=== PATIENT | male | born 1935 | race Caucasian/White ===

== ENCOUNTER 2018-01-24 08:35 | Inpatient (IN) | payer MEDICARE, MEDICAID ==
[~2018-01-24] VITALS: Ht 172.7 cm; Wt 75.7 kg
[2018-01-24] VITALS (42 sets, daily range): BP systolic 73–149; BP diastolic 34–100
[2018-01-24] MEDS ORDERED: IV NORMAL SALINE 500 ML BAG IV ONE ×2 (08:45→10:15)
[2018-01-24] MEDS ORDERED: ATOR40TA PO (08:58)
[2018-01-24] MEDS ORDERED: BUPR100T5 PO (08:58)
[2018-01-24] MEDS ORDERED: MECL-118 PO (08:58)
[2018-01-24] MEDS ORDERED: MELA5TAB PO (08:58)
[2018-01-24] MEDS ORDERED: ASPI-612 PO (08:58)
[2018-01-24] MEDS ORDERED: DICL1ADH11 TP (08:58)
[2018-01-24] MEDS ORDERED: CLON1TAB4 PO (08:58)
[2018-01-24] MEDS ORDERED: ACET-2605 PO (08:58)
[2018-01-24] MEDS ORDERED: VITA1TAB20 PO (08:58)
--- NOTE | 2018-01-24 09:11 | NUR ---
Assisted patient to a gown & partial skin care provided. Comfort and safety measures maintained.
[2018-01-24] MEDS ORDERED: ACETAMINOPHEN ES 500 MG TABLET ONE (09:29)
[2018-01-24] MEDS ORDERED: ACETAMINOPHEN ES 500 MG TABLET PO ONE (09:30)
[2018-01-24 09:38] LABS: BASOPHILS % (AUTO) 0.1 % (0.0-2.0); HEMOGLOBIN 12.4 g/dL (12.5-16.3); LYMPHOCYTES # (AUTO) 0.4 K/uL (20.0-40.0); LYMPHOCYTES % (AUTO) 2.4 % (20.5-51.5); MEAN CORPUSCULAR HEMOGLOBIN 29.3 uug (23.8-33.4); MEAN CORPUSCULAR HGB CONC 33 g/dL (32.5-36.3); MEAN CORPUSCULAR VOLUME 87.6 fL (73.0-96.2); MONOCYTES # (AUTO) 0.3 K/uL (2.0-10.0); MONOCYTES % (AUTO) 1.7 % (0.0-11.0); NEUTROPHILS # (AUTO) 14.8 K/uL (1.8-8.9); NEUTROPHILS % (AUTO) 95.8 % (38.5-71.5); PLATELET COUNT (AUTO) 196 K/uL (152-348); RED BLOOD CELL COUNT(AUTO) 4.22 MIL/uL (4.06-5.63); WHITE BLOOD COUNT (AUTO) 15.4 K/uL (3.6-10.2)
[2018-01-24 09:40] LABS: CARBON DIOXIDE 21 mmol/L (21-32); CHLORIDE 104 mmol/L (98-107); CREATININE 2.6 mg/dL (0.6-1.3); GLUCOSE 86 mg/dL (74-106); POTASSIUM 4.4 mmol/L (3.5-5.1); UREA NITROGEN, BLOOD 43 mg/dL (7-18)
[2018-01-24 09:46] LABS: ALANINE AMINOTRANSFERASE 40 U/L (16-63); ALKALINE PHOSPHATASE 80 U/L (50-136); ASPARTATE AMINOTRANSFERASE 52 U/L (15-37); BILIRUBIN,DIRECT 0.3 mg/dL (0.0-0.2); BILIRUBIN,TOTAL 0.9 mg/dL (0.2-1.0); TOTAL PROTEIN, SERUM 6.1 g/dL (6.4-8.2)
[2018-01-24] MEDS ORDERED: LEVOFLOXACIN 750MG/D5W 150 ML IV ONE ×2 (10:15→10:16)
--- NOTE | 2018-01-24 10:58 | NUR ---
Patient left for CT scan then patient will go straight to room 206.
--- NOTE | 2018-01-24 11:20 | NUR ---
RECIEVED NEW PATIENT TO ROOM 206 FROM ER AFTER X RAY AWAKE ALERT COOPERATE WELL NO SOB OR PAIN CONTINUE O2 AT 2L O2 SAT WNL 96% BUT BP WAS LOW 76/50 PUT HIM ON TRENDELENBERG POSITION AND RECHECK AGAIN STILL LOW SEE VS FLOW SHEET MARKET ANALYST JENNA TERRY WAS INFORM ORDER NS 500ML BOLUS AND GIVEN ORDERED AND CLOSED OBSERVATION CALL LIGHT IN REACH
[2018-01-24] MEDS ORDERED: IV NS 1000 ML 1,000 ML IV PRN (11:45)
[2018-01-24] MEDS ORDERED: ACETAMINOPHEN 325 MG TABLET PO PRN (11:45)
[2018-01-24] MEDS ORDERED: IV NORMAL SALINE 500 ML IV ONE (11:45)
--- NOTE | 2018-01-24 12:00 | NUR ---
CONTINUE IVF ORDER LAB WAS CALL LACTIC ACID WAS 4.4 CONTINUOUS MINING MACHINE LODE MINER HARRISON WAS NOTIFY CONTINUE LAB LACTIC ACID PROTOCOL AND LAB WAS AWARE OF IT
[2018-01-24] MEDS ORDERED: MECLIZINE HCL 25 MG TABLET PO PRN (12:15)
--- NOTE | 2018-01-24 12:15 | NUR ---
CHECK BP STILL LOW OVEN ROASTER HARRISON WAS INFORM AND ORDER OK TO TRANSFER TO THE UNIT WITH ORDER
--- NOTE | 2018-01-24 12:25 | NUR ---
TO UNIT VIA BED RESTING QUIET NO ACUTE DISTRESS OR PAIN AT THIS TIME
--- NOTE | 2018-01-24 12:30 | NUR ---
PT GOT TRANSFERRED FROM TELEMETRY BECAUSE OF LOW BP IN THE 70'S. PT IS VERY AWAKE , ALERT. AND ORIENTED. IVF RUNNING ON THE LEFT FA PATENT AND INTACT.
--- NOTE | 2018-01-24 12:45 | NUR ---
REPORT GIVE TO RADHA
[2018-01-24 12:49] LABS: BAND % (MANUAL) 30 % (0-10); LYMPHOCYTES % (MANUAL) 3 % (20-40); MONOCYTES % (MANUAL) 2 % (2-10); NEUTROPHILS % (MANUAL) 65 % (42-75)
--- NOTE | 2018-01-24 13:54 | NUR ---
PHARMACY CLINICAL NOTES ( VANCOMYCIN DOSING) S: 82 yo male with diagnosis syncope, possible sepsis, and PNA (MD note not in yet) pt received levaquin 750 mg x 1 in ER and was ordered Rocephine and Zithromax on floor. now MD ordered Vancomycin empirically until ID consult is done and antibiotics are adjusted. O: BUN/SCR 43/2.6; WBC 15.4, TEMP 99.2, LACTIC ACID 4.4--> 3.2; DOSING WT 160 LBS A/P: Will give Vancomycin 1 gm ivpb x 1 dose and will dose by fall of the level if ID decide to continue. per calculation Vancomycin 1gm q36h would yeild peak of 35 and trough of 17 . Will order level approximately around 36 hrs and will dose accordingly.
[2018-01-24] MEDS ORDERED: VANCOMYCIN IV 1 G in PREMIXED 0 EACH IV ONE (14:00)
--- NOTE | 2018-01-24 14:00 | NUR ---
SEEN AND EXAMINED BY IDA SHRESTHA WITH NEW ADMITTING ORDER. DISCONTINUED THE MAIN IVF ORDERED. STRATED A NEW IV LINE ON THE LEFT HAND G20 FOR THE LEVOPHED DRIP SECONDARY TO LOW BP.
[2018-01-24] MEDS: CEFTRIAXONE 1 G in IV DEXTROSE 5% 50 ML IV SCH (14:42)
[2018-01-24] MEDS: AZITHROMYCIN IV 500 MG in IV DEXTROSE 5% 250 ML IV SCH (14:43)
--- NOTE | 2018-01-24 15:30 | NUR ---
2DECHO DONE AT THE BEDSIDE.
[2018-01-24] MEDS: NOREPINEPHRINE BITARTRATE 8 MG in IV DEXTROSE 5% 500 ML IV PRN (15:44)
[2018-01-24 16:12] LABS: ABG BASE EXCESS -6.4 mmol/L; ABG HCO3 16.6 mmol/L; ABG PCO2 26.5 mmHg (35.0-45.0); ABG PH 7.416 (7.350-7.450); ABG SITE RIGHT RADIAL; ABG TOTAL HEMOGLOBIN 12.7 G/dL (13.5-18.0); COHb 1.5 % (0.5-1.5); MetHb 0.3 % (0.0-1.5); VENT MODE Nasal Cannula
[2018-01-24] MEDS ORDERED: buPROPion SR 100 MG TABLET.SA PO SCH (17:00)
[2018-01-24] MEDS ORDERED: IV NS 1000 ML 1,000 ML IV ONE (17:15)
--- NOTE | 2018-01-24 17:30 | NUR ---
SEEN AND EXAMINED BY DR MEDINA WITH NEW ORDERS.
--- NOTE | 2018-01-24 18:20 | NUR ---
LACTIC ACID RESULT IS TRENDING DOWN TO 2.6. REPORT GIVEN TO OFFICE CLERK ASSISTANT RN
--- NOTE | 2018-01-24 18:30 | NUR ---
SEEN AND EXAMINED BY DR HAILEY HALL.
--- NOTE | 2018-01-24 18:50 | NUR ---
TIO ELLISON EXAMINED BY DR KIMO DHILLON [facility] ORDERS
[2018-01-24] MEDS ORDERED: ASPIRIN 325 MG TABLET PO ONE (19:15)
[2018-01-24] MEDS: IPRATROPIUM BROMIDE 0.5 MG/2.5 ML NEBU NEB SCH (19:29)
[2018-01-24] MEDS: ALBUTEROL SULFATE 2.5 MG/ 0.5 ML NEBU NEB SCH (19:30)
--- NOTE | 2018-01-24 19:30 | NUR ---
rounds made patient in bed ,awake ,alert and verbally responsive. patient denies pain when asked .tolerating 02 at 5 l min rr 25 saturation 97 % hob up . patient with breathing treatment and respiratory therapist at bedside will given patient breathing treatment .
[2018-01-24] MEDS: ATORVASTATIN 40 MG TABLET PO SCH (20:14)
[2018-01-24] MEDS ORDERED: MORPHINE SULFATE 2 MG/1 ML DISP.SYRIN IV PRN (20:15)
[2018-01-24 20:17] LABS: *BILIRUBIN,URIN NEGATIVE (NEGATIVE); *BLOOD, URINE 1+ (NEGATIVE); *CLARITY,URINE CLEAR (CLEAR); *COLOR,URINE DARK YELLOW (YELLOW); *KETONES,URINE NEGATIVE (NEGATIVE); *PROTEIN,URINE 1+ (NEGATIVE); *UROBILINOGEN,URINE 0.2 E.U./dl (NORMAL); LEUKOCYTE ESTERASE ,URINE NEGATIVE (NEGATIVE); NITRITE, URINE NEGATIVE (NEGATIVE); PH,URINE 5.5 (5.0-8.0); UGLUCOSE NEGATIVE (NEGATIVE)
[2018-01-24 20:20] LABS: *CREATININE,URINE 157.5 mg/dL (30-125); *URINE TOTAL PROTEIN RANDOM 47.2 mg/dL (<150/24HR)
[2018-01-24] MEDS: MELATONIN 3 MG TABLET PO SCH (20:46)
[2018-01-24] MEDS: MORPHINE SULFATE 4 MG/1 ML DISP.SYRIN IV PRN (20:49)
[2018-01-24] MEDS: IV NS 1000 ML 1,000 ML IV PRN ×2 (21:09→21:12)
[2018-01-24 21:18] LABS: MUCUS,URINE FEW /LPF (0-FEW); SQUAMOUS EPITHELIAL CELL,UR FEW /HPF (NONE SEEN); WBC,URINE 0-3 /HPF (0-3)
[2018-01-25] VITALS (87 sets, daily range): BP systolic 69–168; BP diastolic 40–97
[2018-01-25] MEDS: ALBUTEROL SULFATE 2.5 MG/ 0.5 ML NEBU NEB SCH ×4 (01:24→19:21)
[2018-01-25] MEDS: IPRATROPIUM BROMIDE 0.5 MG/2.5 ML NEBU NEB SCH ×4 (01:24→19:21)
[2018-01-25] MEDS: MORPHINE SULFATE 4 MG/1 ML DISP.SYRIN IV PRN (05:03)
--- NOTE | 2018-01-25 05:03 | NUR ---
morphine given prn for pain this time his pain is to his right lateral side .
--- NOTE | 2018-01-25 05:30 | NUR ---
am care done ,changed soiled linens and gown,patient able to help in turning .
[2018-01-25 05:39] LABS: BASOPHILS % (AUTO) 0.3 % (0.0-2.0); EOSINOPHILS % (AUTO) 0.1 % (0.0-7.0); HEMATOCRIT 35.8 % (36.7-47.1); HEMOGLOBIN 12.2 g/dL (12.5-16.3); LYMPHOCYTES # (AUTO) 0.7 K/uL (20.0-40.0); LYMPHOCYTES % (AUTO) 4.4 % (20.5-51.5); MEAN CORPUSCULAR HEMOGLOBIN 29.3 uug (23.8-33.4); MEAN CORPUSCULAR HGB CONC 34 g/dL (32.5-36.3); MONOCYTES # (AUTO) 0.2 K/uL (2.0-10.0); MONOCYTES % (AUTO) 1.4 % (0.0-11.0); NEUTROPHILS # (AUTO) 15.3 K/uL (1.8-8.9); NEUTROPHILS % (AUTO) 93.8 % (38.5-71.5); PLATELET COUNT (AUTO) 178 K/uL (152-348); RED BLOOD CELL COUNT(AUTO) 4.16 MIL/uL (4.06-5.63); WHITE BLOOD COUNT (AUTO) 16.2 K/uL (3.6-10.2)
[2018-01-25 05:57] LABS: ALANINE AMINOTRANSFERASE 28 U/L (16-63); ALKALINE PHOSPHATASE 65 U/L (50-136); ASPARTATE AMINOTRANSFERASE 26 U/L (15-37); BILIRUBIN,TOTAL 0.6 mg/dL (0.2-1.0); CARBON DIOXIDE 22 mmol/L (21-32); CHLORIDE 105 mmol/L (98-107); CHOLESTEROL 59 mg/dL (<200); CREATININE 2.2 mg/dL (0.6-1.3); GLUCOSE 86 mg/dL (74-106); HDL CHOLESTEROL 12 mg/dL (40-60); MAGNESIUM 1.3 mg/dL (1.8-2.4); PHOSPHOROUS 2.2 mg/dL (2.5-4.9); POTASSIUM 4.1 mmol/L (3.5-5.1); TOTAL PROTEIN, SERUM 5.6 g/dL (6.4-8.2); TRIGLYCERIDES 78 MG/DL (30-150); UREA NITROGEN, BLOOD 45 mg/dL (7-18)
[2018-01-25 06:10] LABS: THYROID STIMULATING HORMONE 1.659 mIU/mL (0.358-3.740)
[2018-01-25] MEDS: PANTOPRAZOLE SODIUM 40 MG TABLET.DR PO SCH (06:13)
[2018-01-25 06:15] LABS: CREATINE KINASE, TOTAL 157 U/L (39-308)
[2018-01-25] MEDS: IV NS 1000 ML 1,000 ML IV PRN (06:48)
--- NOTE | 2018-01-25 06:54 | NUR ---
seen and examined by jeanette Carreno md spoked to patient with regards to patient plan of care and treatment as per md he will continue to see patient as an out patient .
--- NOTE | 2018-01-25 08:50 | NUR ---
PT's sister and DPOA at bedside and as requested a call to attending for a complete update report.
[2018-01-25] MEDS: VITAMIN B COMPLEX 1 TABLET PO SCH (09:01)
[2018-01-25] MEDS: CYANOCOBALAMIN 1000 MCG/ML VIAL IM SCH (09:02)
[2018-01-25] MEDS: ASPIRIN 325 MG TABLET PO SCH (09:02)
[2018-01-25] MEDS: CEFTRIAXONE 1 G in IV DEXTROSE 5% 50 ML IV SCH (09:22)
[2018-01-25] MEDS ORDERED: NEUTRA PHOS PACKET PO ONE (10:30)
--- NOTE | 2018-01-25 11:21 | NUR ---
Attending N.P. in the unit to examine patient.
[2018-01-25] MEDS: MAGNESIUM SULFATE/D5W 100 ML IV SCH ×3 (11:22→13:30)
[2018-01-25] MEDS ORDERED: VANCOMYCIN IV 1 G in PREMIXED 0 EACH IV ONE (11:30)
--- NOTE | 2018-01-25 11:40 | NUR ---
PHARMACY CLINICAL NOTES ( VANCOMYCIN DOSING) S: 82 yo male with diagnosis syncope, possible sepsis, and PNA. Per ID, CAP severe to extent to cover for MRSA empirically. O: BUN/SCR 45/2.2; WBC 16.2, TEMP 98.2, DOSING WT 160 LBS Random" today with am labs 8.6 A/P: Gave another 1gm dose of vancomycin this am based on random today. Next random ordered with am labs tomorrow. Will follow level and redose as appropriate. Will monitor
[2018-01-25] MEDS: AZITHROMYCIN IV 500 MG in IV DEXTROSE 5% 250 ML IV SCH (14:57)
[2018-01-25] MEDS: NOREPINEPHRINE BITARTRATE 8 MG in IV DEXTROSE 5% 500 ML IV PRN (15:40)
--- NOTE | 2018-01-25 18:02 | NUR ---
Dr. Wang urology services in the unit to examine patient, full report given.
--- NOTE | 2018-01-25 20:00 | NUR ---
RECEIVED PT AWAKE, ALERT & ORIENTED X3, DENIES PAIN OR ANY DISCOMFORTS. ON O2 @ 4LNC W/ O2 SAT OF 98%. ON LEVOPHED DRIP @ 1MCQ/MIN ON L HAND. NS @ TKO RATE ON LFA., NO SIGNS OF INFILTRATION ON BOTH IV SITE. TEMP-99.2 ORALLY. COLD TOWEL APPLIED ON FOREHEAD & OFFERED COLD WATER TO DRINK. REPOSITIONED PT W/ HOB ELEVATED. NOT IN ANY DISTRESS.
[2018-01-25] MEDS: MELATONIN 3 MG TABLET PO SCH (20:39)
[2018-01-25] MEDS: ATORVASTATIN 40 MG TABLET PO SCH (20:40)
[2018-01-25] MEDS: LACTOBACILLUS RHAMNOSUS GG 1 EACH CAPSULE PO SCH (20:40)
[2018-01-26] VITALS (16 sets, daily range): BP systolic 94–139; BP diastolic 50–80
--- NOTE | 2018-01-26 | NUR ---
INSTRUCTED PT. TO BE NPO FOR CT SCAN OF PELVIS W/O CONTRAST IN AM. TEMP-98.3 ORALLY.
[2018-01-26] MEDS: ALBUTEROL SULFATE 2.5 MG/ 0.5 ML NEBU NEB SCH ×4 (00:30→19:11)
[2018-01-26] MEDS: IPRATROPIUM BROMIDE 0.5 MG/2.5 ML NEBU NEB SCH ×4 (00:30→19:11)
--- NOTE | 2018-01-26 01:00 | NUR ---
OFF LEVOPHED DRIP.
[2018-01-26] MEDS: MORPHINE SULFATE 4 MG/1 ML DISP.SYRIN IV PRN (02:05)
--- NOTE | 2018-01-26 04:30 | NUR ---
AM CARE DONE. ORAL CARE DONE BY HIMSELF. COUGHING OUT BLOOD TINGED MUCOUS THICK.
[2018-01-26] MEDS ORDERED: IV NORMAL SALINE 250 ML BAG IV ONE (04:45)
[2018-01-26] MEDS ORDERED: IV NORMAL SALINE 250 ML IV PRN (04:45)
[2018-01-26 05:07] LABS: BASOPHILS % (AUTO) 0.2 % (0.0-2.0); EOSINOPHILS # (AUTO) 0.1 K/uL (0.0-0.7); EOSINOPHILS % (AUTO) 0.7 % (0.0-7.0); HEMATOCRIT 32.8 % (36.7-47.1); LYMPHOCYTES # (AUTO) 0.7 K/uL (20.0-40.0); LYMPHOCYTES % (AUTO) 5.2 % (20.5-51.5); MEAN CORPUSCULAR HEMOGLOBIN 28.8 uug (23.8-33.4); MEAN CORPUSCULAR HGB CONC 34 g/dL (32.5-36.3); MEAN CORPUSCULAR VOLUME 85.3 fL (73.0-96.2); MONOCYTES # (AUTO) 0.5 K/uL (2.0-10.0); MONOCYTES % (AUTO) 3.4 % (0.0-11.0); NEUTROPHILS % (AUTO) 90.5 % (38.5-71.5); PLATELET COUNT (AUTO) 157 K/uL (152-348); RED BLOOD CELL COUNT(AUTO) 3.84 MIL/uL (4.06-5.63); WHITE BLOOD COUNT (AUTO) 14.4 K/uL (3.6-10.2)
[2018-01-26] MEDS: IPRATROPIUM BROMIDE 0.5 MG/2.5 ML NEBU NEB PRN (05:14)
[2018-01-26] MEDS: ALBUTEROL SULFATE 2.5 MG/ 0.5 ML NEBU NEB PRN (05:14)
--- NOTE | 2018-01-26 05:15 | NUR ---
HHN RESP TX GIVEN, PT. WAS ASLEEP AFTER. LEVOPHED DRIP REMAINS OFF BP STABLE.
[2018-01-26 05:22] LABS: ALANINE AMINOTRANSFERASE 26 U/L (16-63); ALKALINE PHOSPHATASE 76 U/L (50-136); ASPARTATE AMINOTRANSFERASE 25 U/L (15-37); BILIRUBIN,TOTAL 0.5 mg/dL (0.2-1.0); CARBON DIOXIDE 24 mmol/L (21-32); CHLORIDE 106 mmol/L (98-107); CREATININE 1.9 mg/dL (0.6-1.3); GLUCOSE 109 mg/dL (74-106); MAGNESIUM 2.2 mg/dL (1.8-2.4); PHOSPHOROUS 2.3 mg/dL (2.5-4.9); POTASSIUM 3.7 mmol/L (3.5-5.1); TOTAL PROTEIN, SERUM 5.4 g/dL (6.4-8.2); UREA NITROGEN, BLOOD 32 mg/dL (7-18); VANCOMYCIN,RANDOM 12.8 ug/mL (18.0-26.0)
[2018-01-26 05:55] LABS: BAND % (MANUAL) 6 % (0-10); LYMPHOCYTES % (MANUAL) 6 % (20-40); MONOCYTES % (MANUAL) 1 % (2-10); NEUTROPHILS % (MANUAL) 85 % (42-75); PROMYELOCYTES % 1 %
[2018-01-26] MEDS: PANTOPRAZOLE SODIUM 40 MG TABLET.DR PO SCH (06:43)
--- NOTE | 2018-01-26 07:07 | NUR ---
Report received.Pt remains awake,alert.Denies pain,discomfort.Respiration even,unlabored.Noted with productive cough.No SOB noted.Will continue to monitor.
[2018-01-26] MEDS: VITAMIN B COMPLEX 1 TABLET PO SCH (08:52)
[2018-01-26] MEDS: CYANOCOBALAMIN 1000 MCG/ML VIAL IM SCH (08:52)
[2018-01-26] MEDS: CEFTRIAXONE 1 G in IV DEXTROSE 5% 50 ML IV SCH (08:52)
[2018-01-26] MEDS: LACTOBACILLUS RHAMNOSUS GG 1 EACH CAPSULE PO SCH ×2 (08:53→21:20)
[2018-01-26] MEDS: ASPIRIN 325 MG TABLET PO SCH (08:59)
[2018-01-26] MEDS ORDERED: VANCOMYCIN IV 1 G in PREMIXED 0 EACH IV ONE (09:00)
[2018-01-26 09:07] LABS: A/G RATIO 0.9 (0.7-1.7); ALBUMIN 2.3 g/dL (2.9-4.4); ALPHA-1-GLOBULIN 0.4 g/dL (0.0-0.4); ALPHA-2-GLOBULIN 0.8 g/dL (0.4-1.0); BETA GLOBULIN 0.6 g/dL (0.7-1.3); GAMMA GLOBULIN 0.7 g/dL (0.4-1.8); GLOBULIN, TOTAL 2.5 g/dL (2.2-3.9); M-SPIKE Not Observed g/dL (Not Observed)
--- NOTE | 2018-01-26 10:00 | NUR ---
Pt was transferred to CT scan via bed connected to monitor.
[2018-01-26] MEDS ORDERED: NEUTRA PHOS PACKET PO ONE (10:15)
--- NOTE | 2018-01-26 11:21 | NUR ---
PHARMACY CLINICAL NOTES ( VANCOMYCIN DOSING) S: 82 yo male with diagnosis syncope, possible sepsis, and PNA. Per ID, CAP severe to extent to cover for MRSA empirically. O: BUN/SCR 32/1.9; WBC 14.4, TEMP 98.2, DOSING WT 160 LBS Random" today with am labs 12.8 A/P: Gave another 1gm dose of vancomycin this am at 0900 based on random today. Next random ordered with am labs tomorrow. Will follow level and re-dose as appropriate. Will monitor
[2018-01-26] MEDS ORDERED: CEFEPIME HCL 1 G in IV DEXTROSE 5% 50 ML IV SCH (13:00)
--- NOTE | 2018-01-26 13:09 | NUR ---
Pt was transferred to room 214.Report given to KAMILLA Nicole.
--- NOTE | 2018-01-26 13:10 | NUR ---
patient transferred from [facility] into telemetry at this time in stable condition, no s/s of distress. vital signs stable. received transfer report from KAMILLA estrada.
[2018-01-26] MEDS: AZITHROMYCIN IV 500 MG in IV DEXTROSE 5% 250 ML IV SCH (14:55)
--- NOTE | 2018-01-26 17:57 | NUR ---
antibiotics administered. afebrile. vitals wnl. awaiting sputum for pending sputum culture. stable condition. no s/s of distress. call light within reach.
[2018-01-26] MEDS: MELATONIN 3 MG TABLET PO SCH (21:20)
[2018-01-26] MEDS: ATORVASTATIN 40 MG TABLET PO SCH (21:20)
--- NOTE | 2018-01-26 21:36 | NUR ---
RECEIVED PT AWAKE, ALERT, ORIENTEDX3.PT SHOWS NO SIGNS OF DISTRESS. PT ON 4L NASAL CANULA. IV INTACT AND PATENT. ARECHIGA CATHETER DWELLING WELL. CALL LIGHT WITHIN REACH, BED ALARM ON AND IN LOW POSITION, SIDE RAILS X2 UP. WILL CONTINUE TO MONITOR.
[2018-01-27] MEDS: IPRATROPIUM BROMIDE 0.5 MG/2.5 ML NEBU NEB SCH ×4 (00:31→19:10)
[2018-01-27] MEDS: ALBUTEROL SULFATE 2.5 MG/ 0.5 ML NEBU NEB SCH ×4 (00:31→19:11)
[2018-01-27 01:12] LABS: *BILIRUBIN,URIN NEGATIVE (NEGATIVE); *BLOOD, URINE 2+ (NEGATIVE); *CLARITY,URINE CLEAR (CLEAR); *COLOR,URINE YELLOW (YELLOW); *KETONES,URINE NEGATIVE (NEGATIVE); *PROTEIN,URINE 2+ (NEGATIVE); *UROBILINOGEN,URINE 0.2 E.U./dl (NORMAL); LEUKOCYTE ESTERASE ,URINE NEGATIVE (NEGATIVE); NITRITE, URINE NEGATIVE (NEGATIVE); PH,URINE 5.5 (5.0-8.0); UGLUCOSE NEGATIVE (NEGATIVE)
[2018-01-27 01:20] LABS: BACTERIA,URINE NONE SEEN /HPF (NONE SEEN); RBC,URINE 50-80 /HPF (0-3); SQUAMOUS EPITHELIAL CELL,UR FEW /HPF (NONE SEEN)
[2018-01-27 04:36] VITALS: BP 126/75
[2018-01-27] MEDS: PANTOPRAZOLE SODIUM 40 MG TABLET.DR PO SCH (06:32)
[2018-01-27 06:37] LABS: BASOPHILS % (AUTO) 0.3 % (0.0-2.0); EOSINOPHILS # (AUTO) 0.1 K/uL (0.0-0.7); EOSINOPHILS % (AUTO) 0.7 % (0.0-7.0); HEMOGLOBIN 10.9 g/dL (12.5-16.3); LYMPHOCYTES # (AUTO) 0.8 K/uL (20.0-40.0); LYMPHOCYTES % (AUTO) 5.9 % (20.5-51.5); MEAN CORPUSCULAR HGB CONC 34 g/dL (32.5-36.3); MONOCYTES # (AUTO) 1.3 K/uL (2.0-10.0); MONOCYTES % (AUTO) 9.2 % (0.0-11.0); NEUTROPHILS # (AUTO) 11.6 K/uL (1.8-8.9); NEUTROPHILS % (AUTO) 83.9 % (38.5-71.5); PLATELET COUNT (AUTO) 173 K/uL (152-348); RED BLOOD CELL COUNT(AUTO) 3.77 MIL/uL (4.06-5.63); WHITE BLOOD COUNT (AUTO) 13.8 K/uL (3.6-10.2)
--- NOTE | 2018-01-27 06:47 | NUR ---
PT SLEPT INTERMITTENTLY DURING THE SHIFT. PT SHOWS NO SIGNS OF DISTRESS. PT STABLE AND VITAL SIGNS WNL. IV INTACT AND PATENT. ARECHIGA CATH INFUSING WELL.PRESCRIBED MEDICATION TAKEN AND PT TOLERATED IT WELL. SAFETY AND COMFORT PROVIDED.WILL ENDORSE TO DAYSHIFT NURSE.
[2018-01-27 06:59] LABS: ALANINE AMINOTRANSFERASE 28 U/L (16-63); ALKALINE PHOSPHATASE 109 U/L (50-136); ASPARTATE AMINOTRANSFERASE 26 U/L (15-37); BILIRUBIN,TOTAL 0.8 mg/dL (0.2-1.0); CARBON DIOXIDE 24 mmol/L (21-32); CHLORIDE 106 mmol/L (98-107); CREATININE 1.6 mg/dL (0.6-1.3); GLUCOSE 116 mg/dL (74-106); MAGNESIUM 1.9 mg/dL (1.8-2.4); PHOSPHOROUS 2.4 mg/dL (2.5-4.9); POTASSIUM 3.4 mmol/L (3.5-5.1); TOTAL PROTEIN, SERUM 5.6 g/dL (6.4-8.2); UREA NITROGEN, BLOOD 25 mg/dL (7-18); VANCOMYCIN,RANDOM 12.8 ug/mL (18.0-26.0)
--- NOTE | 2018-01-27 07:18 | NUR ---
received shfit report from apron operator nurse. patient resting comfortably in bed. nasopharynx culture sent per apron operator nurse. pt in stable condition, no s/s of distress. on 4L nc saturating above 90%. will continue to monitor. received breathing tx at this time.
[2018-01-27 07:30] LABS: BAND % (MANUAL) 9 % (0-10); EOSINOPHILS % (MANUAL) 1 % (0-8); LYMPHOCYTES % (MANUAL) 5 % (20-40); METAMYELOCYTES % 2 % (0-1); MONOCYTES % (MANUAL) 10 % (2-10); NEUTROPHILS % (MANUAL) 73 % (42-75)
[2018-01-27] MEDS: CYANOCOBALAMIN 1000 MCG/ML VIAL IM SCH (08:01)
[2018-01-27] MEDS: ASPIRIN 325 MG TABLET PO SCH (08:01)
[2018-01-27] MEDS: LACTOBACILLUS RHAMNOSUS GG 1 EACH CAPSULE PO SCH ×2 (08:01→20:12)
[2018-01-27] MEDS: VITAMIN B COMPLEX 1 TABLET PO SCH (08:03)
[2018-01-27 08:06] LABS: *TESTOSTERONE, SERUM 53 ng/dL (264-916)
[2018-01-27] MEDS ORDERED: VANCOMYCIN IV 1 G in PREMIXED 0 EACH IV ONE (09:00)
[2018-01-27] MEDS: CEFTRIAXONE 1 G in IV DEXTROSE 5% 50 ML IV SCH (09:09)
--- NOTE | 2018-01-27 09:53 | NUR ---
vital signs stable. antibiotics administered.
[2018-01-27] MEDS ORDERED: NEUTRA PHOS PACKET PO ONE (10:30)
[2018-01-27] MEDS ORDERED: POTASSIUM CHLORIDE 10 MEQ TAB.PRT.SR PO ONE (10:30)
[2018-01-27 11:10] VITALS: BP 123/75
[2018-01-27] MEDS: ENSURE WITH FIBER 237 ML LIQUID (CHOCOLATE) PO SCH ×2 (12:32→17:48)
--- NOTE | 2018-01-27 12:47 | NUR ---
PHARMACY CLINICAL NOTES ( VANCOMYCIN DOSING) S: 82 yo male with diagnosis syncope, possible sepsis, and PNA. Per ID, CAP severe to extent to cover for MRSA empirically. O: BUN/SCR 25/1.6; WBC 13.8, TEMP 99.5, DOSING WT 160 LBS Random" today with am labs 12.8 A/P: Gave another 1gm dose of vancomycin this am at 0900 based on random today. Next random ordered with am labs tomorrow. Will follow level and re-dose as appropriate. Will monitor
[2018-01-27 15:00] VITALS: BP 129/82
[2018-01-27 20:00] VITALS: BP 158/95
[2018-01-27] MEDS: ATORVASTATIN 40 MG TABLET PO SCH (20:12)
[2018-01-27] MEDS: MELATONIN 3 MG TABLET PO SCH (20:13)
[2018-01-27 21:00] VITALS: BP 140/61
[2018-01-28] MEDS: ALBUTEROL SULFATE 2.5 MG/ 0.5 ML NEBU NEB SCH ×4 (00:31→18:32)
[2018-01-28] MEDS: IPRATROPIUM BROMIDE 0.5 MG/2.5 ML NEBU NEB SCH ×4 (00:31→18:32)
[2018-01-28 05:29] VITALS: BP 128/70
--- NOTE | 2018-01-28 05:30 | NUR ---
GAVE TYLENOL AND COOLING MEASURES TO PT BECAUSE OF ELEVATION OF TEMPERATURE AT 0500H THEN AT 0530H REASSESS THE TEMP IT WENT DOWN TO 98.4. WILL CONTINUE TO MONITOR.
[2018-01-28 06:42] LABS: BASOPHILS % (AUTO) 0.3 % (0.0-2.0); EOSINOPHILS # (AUTO) 0.1 K/uL (0.0-0.7); HEMATOCRIT 31.1 % (36.7-47.1); HEMOGLOBIN 10.9 g/dL (12.5-16.3); LYMPHOCYTES # (AUTO) 0.7 K/uL (20.0-40.0); LYMPHOCYTES % (AUTO) 6.9 % (20.5-51.5); MEAN CORPUSCULAR HEMOGLOBIN 29.8 uug (23.8-33.4); MEAN CORPUSCULAR HGB CONC 35 g/dL (32.5-36.3); MEAN CORPUSCULAR VOLUME 85.1 fL (73.0-96.2); MONOCYTES # (AUTO) 1.7 K/uL (2.0-10.0); NEUTROPHILS # (AUTO) 7.6 K/uL (1.8-8.9); NEUTROPHILS % (AUTO) 74.8 % (38.5-71.5); PLATELET COUNT (AUTO) 189 K/uL (152-348); RED BLOOD CELL COUNT(AUTO) 3.65 MIL/uL (4.06-5.63); WHITE BLOOD COUNT (AUTO) 10.1 K/uL (3.6-10.2)
[2018-01-28 06:53] LABS: ALANINE AMINOTRANSFERASE 68 U/L (16-63); ALKALINE PHOSPHATASE 195 U/L (50-136); ASPARTATE AMINOTRANSFERASE 74 U/L (15-37); BILIRUBIN,TOTAL 0.9 mg/dL (0.2-1.0); CARBON DIOXIDE 23 mmol/L (21-32); CHLORIDE 103 mmol/L (98-107); CREATININE 1.5 mg/dL (0.6-1.3); GLUCOSE 114 mg/dL (74-106); MAGNESIUM 1.7 mg/dL (1.8-2.4); PHOSPHOROUS 2.8 mg/dL (2.5-4.9); POTASSIUM 3.7 mmol/L (3.5-5.1); TOTAL PROTEIN, SERUM 5.8 g/dL (6.4-8.2); UREA NITROGEN, BLOOD 25 mg/dL (7-18); VANCOMYCIN,RANDOM 14.5 ug/mL (18.0-26.0)
[2018-01-28] MEDS: PANTOPRAZOLE SODIUM 40 MG TABLET.DR PO SCH (06:55)
--- NOTE | 2018-01-28 07:17 | NUR ---
RECEIVED SHIFT REPORT FROM INTEGRATION ASSISTANT NURSE. PATIENT RESTING COMFORTABLY IN BED, AWAKE/ALERT AT THIS TIME. ARECHIGA CATHETER DCED. URINAL AT BEDSIDE. BED ALARM ON, CALL LIGHT WITHIN REACH. STABLE CONDITION, NO S/S OF DISTRESS. ANTIBIOTICS WILL BE ADMINISTERED. WILL CONTINUE TO MONITOR.
[2018-01-28 07:30] LABS: NEUTROPHILS % (MANUAL) 70 % (42-75)
[2018-01-28 07:31] LABS: BAND % (MANUAL) 10 % (0-10); EOSINOPHILS % (MANUAL) 1 % (0-8); LYMPHOCYTES % (MANUAL) 7 % (20-40); MONOCYTES % (MANUAL) 12 % (2-10)
[2018-01-28] MEDS: ASPIRIN 325 MG TABLET PO SCH (08:13)
[2018-01-28] MEDS: CYANOCOBALAMIN 1000 MCG/ML VIAL IM SCH (08:13)
[2018-01-28] MEDS: LACTOBACILLUS RHAMNOSUS GG 1 EACH CAPSULE PO SCH ×2 (08:13→21:50)
[2018-01-28] MEDS: VITAMIN B COMPLEX 1 TABLET PO SCH (08:18)
[2018-01-28] MEDS: ENSURE WITH FIBER 237 ML LIQUID (CHOCOLATE) PO SCH ×2 (08:46→17:15)
[2018-01-28] MEDS ORDERED: VANCOMYCIN IV 1 G in PREMIXED 0 EACH IV ONE (09:00)
[2018-01-28] MEDS: CEFTRIAXONE 1 G in IV DEXTROSE 5% 50 ML IV SCH (10:18)
[2018-01-28] MEDS ORDERED: MAGNESIUM SULFATE/D5W 100 ML IV SCH (10:30)
[2018-01-28 11:39] VITALS: BP 123/77
[2018-01-28] MEDS: ONDANSETRON 4 MG/2 ML VIAL IV PRN (12:53)
[2018-01-28 15:38] VITALS: BP 120/90
--- NOTE | 2018-01-28 19:05 | NUR ---
RECEIVED PT AWAKE, ALERT, ORIENTEDX3.PT SHOWS NO SIGNS OF DISTRESS. PT ON 4L NASAL CANULA. IV INTACT AND PATENT. CALL LIGHT WITHIN REACH, BED ALARM ON AND IN LOW POSITION, SIDE RAILS X2 UP. WILL CONTINUE TO MONITOR.
[2018-01-28 20:31] VITALS: BP 126/74
[2018-01-28] MEDS ORDERED: Medication Not On Formulary EA (Melatonin 10 MG) PO SCH (21:00)
[2018-01-28] MEDS ORDERED: LEVOFLOXACIN 750MG/D5W 150 ML IV ONE (21:46)
[2018-01-28] MEDS: MELATONIN 3 MG TABLET PO SCH (21:50)
[2018-01-28] MEDS: ATORVASTATIN 40 MG TABLET PO SCH (21:50)
[2018-01-28] MEDS ORDERED: BISACODYL 5 MG TABLET.DR PO PRN (22:00)
[2018-01-28] MEDS ORDERED: LEVOFLOXACIN 750MG/D5W 750 MG in PREMIXED 1 EACH IV SCH (22:30)
--- NOTE | 2018-01-29 01:00 | NUR ---
HANDS OFF REPORT TO CHARGE NURSE. PT VITAL SIGNS WITHIN NORMAL LIMIT. BREATHING TREATMENT DONE. PT HAD EPISTAXIS AND IT WAS RESOLVED. SAFETY AND COMFORT PROVIDED.
[2018-01-29] MEDS: ALBUTEROL SULFATE 2.5 MG/ 0.5 ML NEBU NEB SCH ×4 (01:21→19:27)
[2018-01-29] MEDS: IPRATROPIUM BROMIDE 0.5 MG/2.5 ML NEBU NEB SCH ×4 (01:21→19:27)
[2018-01-29] MEDS: IPRATROPIUM BROMIDE 0.5 MG/2.5 ML NEBU NEB PRN (02:56)
[2018-01-29] MEDS: ALBUTEROL SULFATE 2.5 MG/ 0.5 ML NEBU NEB PRN (02:56)
[2018-01-29] MEDS: ONDANSETRON 4 MG/2 ML VIAL IV PRN (03:16)
--- NOTE | 2018-01-29 03:17 | NUR ---
pt complained of nausea,repositioned and zofran iv given. good oral hygiene rendered, needs attended to.
[2018-01-29 04:00] VITALS: BP 123/66
--- NOTE | 2018-01-29 05:07 | NUR ---
ON A HIGH LEMUS'S POSITION, O2@ 3L/MIN VIA NC, SATTING AT 95%, NO SOB NOTED , SLEEPING SOUNDLY.
[2018-01-29] MEDS: PANTOPRAZOLE SODIUM 40 MG TABLET.DR PO SCH (06:53)
[2018-01-29 06:56] LABS: ALANINE AMINOTRANSFERASE 91 U/L (16-63); ALKALINE PHOSPHATASE 251 U/L (50-136); ASPARTATE AMINOTRANSFERASE 97 U/L (15-37); BILIRUBIN,TOTAL 0.9 mg/dL (0.2-1.0); CARBON DIOXIDE 22 mmol/L (21-32); CHLORIDE 103 mmol/L (98-107); CREATININE 1.5 mg/dL (0.6-1.3); GLUCOSE 106 mg/dL (74-106); MAGNESIUM 1.9 mg/dL (1.8-2.4); PHOSPHOROUS 3.1 mg/dL (2.5-4.9); POTASSIUM 3.9 mmol/L (3.5-5.1); TOTAL PROTEIN, SERUM 5.9 g/dL (6.4-8.2); UREA NITROGEN, BLOOD 22 mg/dL (7-18)
[2018-01-29 07:15] LABS: EOSINOPHILS # (AUTO) 0.2 K/uL (0.0-0.7); EOSINOPHILS % (AUTO) 1.7 % (0.0-7.0); NEUTROPHILS # (AUTO) 7.9 K/uL (1.8-8.9)
[2018-01-29 07:23] LABS: BASOPHILS % (AUTO) 0.4 % (0.0-2.0); HEMATOCRIT 31.3 % (36.7-47.1); HEMOGLOBIN 10.7 g/dL (12.5-16.3); LYMPHOCYTES # (AUTO) 0.8 K/uL (20.0-40.0); LYMPHOCYTES % (AUTO) 7.5 % (20.5-51.5); MEAN CORPUSCULAR HEMOGLOBIN 29.2 uug (23.8-33.4); MEAN CORPUSCULAR HGB CONC 34 g/dL (32.5-36.3); MEAN CORPUSCULAR VOLUME 85.3 fL (73.0-96.2); MONOCYTES # (AUTO) 1.7 K/uL (2.0-10.0); MONOCYTES % (AUTO) 15.9 % (0.0-11.0); NEUTROPHILS % (AUTO) 74.5 % (38.5-71.5); RED BLOOD CELL COUNT(AUTO) 3.67 MIL/uL (4.06-5.63); WHITE BLOOD COUNT (AUTO) 10.6 K/uL (3.6-10.2)
[2018-01-29 07:25] LABS: PLATELET COUNT (AUTO) 261 K/uL (152-348)
[2018-01-29] MEDS: LACTOBACILLUS RHAMNOSUS GG 1 EACH CAPSULE PO SCH ×2 (08:06→21:18)
[2018-01-29] MEDS: CYANOCOBALAMIN 1000 MCG/ML VIAL IM SCH (08:06)
[2018-01-29] MEDS: ASPIRIN 325 MG TABLET PO SCH (08:06)
[2018-01-29] MEDS: VITAMIN B COMPLEX 1 TABLET PO SCH (08:06)
[2018-01-29] MEDS: ENSURE WITH FIBER 237 ML LIQUID (CHOCOLATE) PO SCH ×2 (08:21→16:23)
[2018-01-29 11:53] LABS: BAND % (MANUAL) 3 % (0-10); EOSINOPHILS % (MANUAL) 1 % (0-8); LYMPHOCYTES % (MANUAL) 10 % (20-40); METAMYELOCYTES % 2 % (0-1); MONOCYTES % (MANUAL) 18 % (2-10); NEUTROPHILS % (MANUAL) 66 % (42-75)
[2018-01-29 12:00] VITALS: BP 111/69
[2018-01-29 15:40] VITALS: BP 105/59
[2018-01-29] MEDS ORDERED: LEVOFLOXACIN 500 MG TABLET PO SCH (16:00)
[2018-01-29] MEDS ORDERED: LEVOFLOXACIN 250 MG TABLET PO SCH (16:15)
[2018-01-29] MEDS ORDERED: MELA3TAB PO (16:21)
[2018-01-29] MEDS ORDERED: ACET325T53 PO (16:21)
[2018-01-29] MEDS ORDERED: CYAN10006 IM (16:21)
[2018-01-29] MEDS ORDERED: PANT40TA2 PO (16:21)
[2018-01-29] MEDS ORDERED: ALBU2.5V13 NEB ×2 (16:21)
[2018-01-29] MEDS ORDERED: IPRA0.2S6 NEB ×2 (16:21)
[2018-01-29] MEDS ORDERED: LEVO500T2 PO (16:21)
[2018-01-29] MEDS ORDERED: BISA5TAB13 PO (16:21)
[2018-01-29] MEDS ORDERED: DOCU-141 PO (16:21)
[2018-01-29] MEDS ORDERED: LACT1CAP57 PO (16:21)
[2018-01-29] MEDS ORDERED: Lactose-Free Food/Fiber PO (16:21)
--- NOTE | 2018-01-29 19:30 | NUR ---
nsg: pt received a/o x 4, waiting for ambulance to be picked up. no acute distress noted. heplock d/c'd by dayshift nurse. on 3L O2 via nc saturating at 95%. HOB elevated 45 degrees. bed alarm on. call light within reach.
[2018-01-29 20:38] VITALS: BP 133/76
[2018-01-29] MEDS: MELATONIN 3 MG TABLET PO SCH (21:00)
[2018-01-29] MEDS: ATORVASTATIN 40 MG TABLET PO SCH (21:18)
--- NOTE | 2018-01-29 21:21 | NUR ---
nsg: pt refused melatonin. wants to take med later bec pt will be discharged to [facility].
--- NOTE | 2018-01-29 22:10 | NUR ---
nsg: pt now refused to be discharged at this time, notified Dr. Bartlett. ambulance just came. per Dr. Thorpe, pt may stay but has to be picked up by ambulance early am. pickler helper arrange for 0700 01/30. pt and son made aware.
[2018-01-30] MEDS: IPRATROPIUM BROMIDE 0.5 MG/2.5 ML NEBU NEB SCH (01:11)
[2018-01-30] MEDS: ALBUTEROL SULFATE 2.5 MG/ 0.5 ML NEBU NEB SCH (01:11)
[2018-01-30] MEDS: MORPHINE SULFATE 4 MG/1 ML DISP.SYRIN IV PRN (03:06)
[2018-01-30 04:00] VITALS: BP 99/53
[2018-01-30 04:06] LABS: *TESTOSTERONE, SERUM 53 ng/dL (264-916)
--- NOTE | 2018-01-30 05:30 | NUR ---
nsg: all needs attended. no acute distress noted. will be picked up by ambulance this am at 0700.
--- NOTE | 2018-01-30 06:35 | NUR ---
nsg: pt picked up by ambulance to be discharged to [facility]
[2018-01-30 08:07] LABS: HEPATITIS A AB, IgM Negative (Negative); HEPATITIS B SURFACE AB Non Reactive (.); HEPATITIS B SURFACE AG Negative (Negative)
== END 2018-01-30 06:38 | DRG 871 ==
LOC: ER 08:35 → EDBD 08:35 → TELE 10:45 → OBSER 12:15 → MED 13:48 → CCU 13:54 → MED 01-26 12:55 → TELE 01-26 12:55 → MED 01-26 17:32
PROVIDERS: ADMIT Internal Medicine; ATTEND Internal Medicine
DX: A41.9 Sepsis, unspecified organism (principal); J18.9 Pneumonia, unspecified organism; N17.0 Acute kidney failure with tubular necrosis; E43 Unspecified severe protein-calorie malnutrition; R65.21 Severe sepsis with septic shock; G92 Toxic encephalopathy; D68.9 Coagulation defect, unspecified; J90 Pleural effusion, not elsewhere classified; E87.2 Acidosis; E83.39 Other disorders of phosphorus metabolism; I13.0 Hypertensive heart and chronic kidney disease with heart failure and stage 1 through stage 4 chronic kidney disease, or unspecified chronic kidney disease; J44.0 Chronic obstructive pulmonary disease with (acute) lower respiratory infection; N13.30 Unspecified hydronephrosis; J98.11 Atelectasis; N13.0 Hydronephrosis with ureteropelvic junction obstruction; I50.9 Heart failure, unspecified; I71.2 Thoracic aortic aneurysm, without rupture; E83.42 Hypomagnesemia; D64.9 Anemia, unspecified; E78.5 Hyperlipidemia, unspecified; E83.51 Hypocalcemia; E87.6 Hypokalemia; F32.9 Major depressive disorder, single episode, unspecified; M19.90 Unspecified osteoarthritis, unspecified site; F17.210 Nicotine dependence, cigarettes, uncomplicated; F41.9 Anxiety disorder, unspecified; N18.9 Chronic kidney disease, unspecified; R53.1 Weakness; E80.6 Other disorders of bilirubin metabolism; R74.0 Nonspecific elevation of levels of transaminase and lactic acid dehydrogenase [LDH]; Z68.25 Body mass index [BMI] 25.0-25.9, adult; I34.0 Nonrheumatic mitral (valve) insufficiency; I07.1 Rheumatic tricuspid insufficiency; E53.8 Deficiency of other specified B group vitamins; E86.9 Volume depletion, unspecified; Z87.81 Personal history of (healed) traumatic fracture; R93.5 Abnormal findings on diagnostic imaging of other abdominal regions, including retroperitoneum; Z98.890 Other specified postprocedural states; S09.90XA Unspecified injury of head, initial encounter; W19.XXXA Unspecified fall, initial encounter; Y93.9 Activity, unspecified; Y92.009 Unspecified place in unspecified non-institutional (private) residence as the place of occurrence of the external cause; Z90.12 Acquired absence of left breast and nipple; M48.54XS Collapsed vertebra, not elsewhere classified, thoracic region, sequela of fracture
CPT/HCPCS: 36415; 36600; 70030-TC; 70450; 71045; 71046; 71250; 72072; 72100; 76770; 83605; 83735; 83970; 84100; 84155; 84156; 84165; 84300; 84403; 84443; 85025; 85730; 86704; 86706; 86709; 86803; 86850; 86900; 86901; 87040; 87070; 87086; 87340; 87400; 93005; 93307; 94640; 94664; 97110; 97116; 97530; A4663; A9150; J0456; J0692; J0696; J1956; J2270; J2405; J3370; J3420; J3475; J3490; J3590; J7030; J7040; J7050; J7060

== ENCOUNTER 2019-10-25 16:08 | Inpatient (IN) | payer MEDICARE, OTHER ==
[~2019-10-25] VITALS: Ht 170.2 cm; Wt 74.0 kg
--- NOTE | 2019-10-25 16:24 | NUR ---
PT IS IN ROOM #1B. DR DEVLIN EVALUATED THE PT.
--- NOTE | 2019-10-25 16:30 | NUR ---
Unable to reconcile home medications, pt unable to recall any information about current home medications.
[2019-10-25] MEDS ORDERED: MORPHINE SULFATE 2 MG/1 ML DISP.SYRIN IV ONE (16:45)
[2019-10-25] MEDS ORDERED: ONDANSETRON 4 MG/2 ML VIAL IV ONE ×2 (16:45→18:30)
[2019-10-25 16:53] LABS: BASOPHILS # (AUTO) 0.1 K/uL (0.0-8.0); BASOPHILS % (AUTO) 0.3 % (0.0-2.0); EOSINOPHILS % (AUTO) 0.1 % (0.0-7.0); HEMATOCRIT 41.5 % (36.7-47.1); HEMOGLOBIN 13.5 g/dL (12.5-16.3); LYMPHOCYTES # (AUTO) 0.5 K/uL (20.0-40.0); LYMPHOCYTES % (AUTO) 3.3 % (20.5-51.5); MEAN CORPUSCULAR HEMOGLOBIN 27.8 uug (23.8-33.4); MEAN CORPUSCULAR HGB CONC 33 g/dL (32.5-36.3); MEAN CORPUSCULAR VOLUME 85.1 fL (73.0-96.2); MONOCYTES # (AUTO) 1.1 K/uL (2.0-10.0); MONOCYTES % (AUTO) 6.8 % (0.0-11.0); NEUTROPHILS # (AUTO) 13.8 K/uL (1.8-8.9); NEUTROPHILS % (AUTO) 89.5 % (38.5-71.5); PLATELET COUNT (AUTO) 178 K/uL (152-348); RED BLOOD CELL COUNT(AUTO) 4.87 MIL/uL (4.06-5.63); WHITE BLOOD COUNT (AUTO) 15.5 K/uL (3.6-10.2)
[2019-10-25] MEDS ORDERED: MORPHINE SULFATE 2 MG/1 ML DISP.SYRIN ONE (16:59)
[2019-10-25] MEDS ORDERED: ONDANSETRON 4 MG/2 ML VIAL ONE ×2 (16:59→18:38)
[2019-10-25 17:03] LABS: CARBON DIOXIDE 25 mmol/L (21-32); CHLORIDE 104 mmol/L (98-107); CREATININE 1.8 mg/dL (0.6-1.3); GLUCOSE 146 mg/dL (74-106); POTASSIUM 4.6 mmol/L (3.5-5.1); UREA NITROGEN, BLOOD 38 mg/dL (7-18)
[2019-10-25 17:09] LABS: ALANINE AMINOTRANSFERASE 21 U/L (16-63); ALKALINE PHOSPHATASE 145 U/L (50-136); ASPARTATE AMINOTRANSFERASE 14 U/L (15-37); BILIRUBIN,DIRECT 0.2 mg/dL (0.0-0.2); BILIRUBIN,TOTAL 0.9 mg/dL (0.2-1.0); TOTAL PROTEIN, SERUM 7.8 g/dL (6.4-8.2)
[2019-10-25] MEDS ORDERED: MORPHINE SULFATE 4 MG/1 ML DISP.SYRIN IV ONE (18:30)
[2019-10-25] MEDS ORDERED: MORPHINE SULFATE 4 MG/1 ML DISP.SYRIN ONE (18:38)
--- NOTE | 2019-10-25 18:41 | NUR ---
DR DEVLIN SPOKE TO SURGION DR HILLS. PT IS GOING TO BE NPO AFTER MIDNIGHT.
[2019-10-25] MEDS ORDERED: METOCLOPRAMIDE HCL 10 MG/2 ML VIAL ONE (19:04)
[2019-10-25] MEDS ORDERED: IV NORMAL SALINE 250 ML IV ONE (19:05)
[2019-10-25] MEDS ORDERED: SWABABLE VALVE TRANSFER SET EA MC ONE (19:05)
[2019-10-25] MEDS ORDERED: IOHEXOL 350 100 ML INFUS..BTL ONE (19:05)
[2019-10-25] MEDS ORDERED: METOCLOPRAMIDE HCL 10 MG/2 ML VIAL IV ONE (19:15)
[2019-10-25 20:55] VITALS: BP 135/82
[2019-10-25] MEDS ORDERED: ZOLPIDEM 5 MG TABLET PO PRN (23:15)
[2019-10-25] MEDS ORDERED: ONDANSETRON 4 MG/2 ML VIAL IV PRN (23:15)
[2019-10-25] MEDS ORDERED: Z GUARD REMEDY PASTE 57 GM TUBE TOP PRN (23:15)
[2019-10-25] MEDS ORDERED: MAGNESIUM HYDROXIDE 30 ML LIQUID UDC PO PRN (23:15)
[2019-10-25] MEDS: IV NS 1000 ML 1,000 ML IV PRN (23:35)
[2019-10-25] MEDS: HYDROCODONE/APAP 5-325MG TABLET PO PRN (23:49)
[2019-10-26] VITALS: BP 132/74
[2019-10-26 01:44] LABS: *CLARITY,URINE CLEAR (CLEAR); *COLOR,URINE YELLOW (YELLOW); PH,URINE 5.5 (5.0-8.0)
[2019-10-26 01:45] LABS: *BILIRUBIN,URIN NEGATIVE (NEGATIVE); *BLOOD, URINE NEGATIVE (NEGATIVE); *KETONES,URINE 1+ (NEGATIVE); *UROBILINOGEN,URINE 0.2 E.U./dl (NORMAL); LEUKOCYTE ESTERASE ,URINE NEGATIVE (NEGATIVE); NITRITE, URINE NEGATIVE (NEGATIVE); UGLUCOSE NEGATIVE (NEGATIVE)
[2019-10-26 01:48] LABS: BACTERIA,URINE FEW /HPF (NONE SEEN); RBC,URINE 0-3 /HPF (0-3); SQUAMOUS EPITHELIAL CELL,UR MODERATE /HPF (NONE SEEN); WBC,URINE 0-3 /HPF (0-3)
[2019-10-26 04:00] VITALS: BP 122/72
[2019-10-26 05:59] LABS: BASOPHILS # (AUTO) 0.1 K/uL (0.0-8.0); BASOPHILS % (AUTO) 0.4 % (0.0-2.0); EOSINOPHILS # (AUTO) 0.2 K/uL (0.0-0.7); EOSINOPHILS % (AUTO) 1.4 % (0.0-7.0); HEMATOCRIT 37.6 % (36.7-47.1); HEMOGLOBIN 12.4 g/dL (12.5-16.3); LYMPHOCYTES # (AUTO) 1.3 K/uL (20.0-40.0); LYMPHOCYTES % (AUTO) 10.6 % (20.5-51.5); MEAN CORPUSCULAR HEMOGLOBIN 27.7 uug (23.8-33.4); MEAN CORPUSCULAR HGB CONC 33 g/dL (32.5-36.3); MEAN CORPUSCULAR VOLUME 84.2 fL (73.0-96.2); MONOCYTES # (AUTO) 1.1 K/uL (2.0-10.0); MONOCYTES % (AUTO) 9.5 % (0.0-11.0); NEUTROPHILS # (AUTO) 9.3 K/uL (1.8-8.9); NEUTROPHILS % (AUTO) 78.1 % (38.5-71.5); PLATELET COUNT (AUTO) 158 K/uL (152-348); RED BLOOD CELL COUNT(AUTO) 4.46 MIL/uL (4.06-5.63); WHITE BLOOD COUNT (AUTO) 11.9 K/uL (3.6-10.2)
[2019-10-26 06:18] LABS: CARBON DIOXIDE 27 mmol/L (21-32); CHLORIDE 105 mmol/L (98-107); CHOLESTEROL 108 mg/dL (<200); GLUCOSE 118 mg/dL (74-106); HDL CHOLESTEROL 47 mg/dL (40-60); MAGNESIUM 1.8 mg/dL (1.8-2.4); PHOSPHOROUS 2.8 mg/dL (2.5-4.9); POTASSIUM 4.7 mmol/L (3.5-5.1); TRIGLYCERIDES 60 MG/DL (30-150); UREA NITROGEN, BLOOD 40 mg/dL (7-18)
--- NOTE | 2019-10-26 07:26 | NUR ---
Patient received from ER. ID band on and belongings list completed by REVENUE AGENT. admissions process complete. voices no SI/HI during my shift. v/s stable and no signs of acute distress. safety and comfort measures provided at all times. c/o of pain administered [place] and c/o of insomnia administered Ambien. tolerated well. patient aware surgery for right hemiarthroplasty in the morning. will continue plan of care and endorse to morning nurse.
[2019-10-26 11:26] VITALS: BP 131/68
[2019-10-26 15:14] VITALS: BP 130/69
[2019-10-26] MEDS: IV NS 1000 ML 1,000 ML IV PRN (17:55)
--- NOTE | 2019-10-26 19:40 | NUR ---
Spoke with son and [id number] (DIL), Donat and Charlotte, in length regarding patient. Per Charlotte, patient is DNR and she has paperwork at home. Nurse explained to LASHANDA and son that until we have a copy of DNR POLST, we are obligated by law to provide lifesaving measures should patient's heart stop. LASHANDA stated she would scan/email copy to nurse via email. LASHANDA also requested that only she, son Donta, and patient's sister Mary be given any information over the phone and all others that call should be referred to son Donta. LASHANDA also stated that patient takes breathing treatments at home for COPD and is concerned that patient is experiencing congestion. Nurse assured LASHANDA and son that she would followup with MD regarding home medicine regime. Addendum: 10/27/19 at 0203 by TAMELA SQUIRES RN Son and DIL,Donta and Charlotte, can be reached at [phone]
--- NOTE | 2019-10-26 19:45 | NUR ---
Contacted FADY Reynoso regarding patient's NPO order. Advised hip surgery not scheduled until 10/28/2019 and requested diet change to full liquids until 10/27/2019 at 12mn. BOILER ENGINEER said ok. New order placed.
--- NOTE | 2019-10-26 20:00 | NUR ---
Patient received into care awake in bed sitting up with family at bedside. Patient is alert/oriented 2-3 with periods of confusion/forgetfulness. Patient is complaining of pain but does not want to take pain medication because it gives him hallucinations. Safety and fall precaution measures are in place. Call light and personal items are within reach. Will continue to monitor and assess.
[2019-10-26 20:34] VITALS: BP 148/75
--- NOTE | 2019-10-26 20:45 | NUR ---
Contacted TREE DOCTOR Lottie and asked if she could please reconcile patient's home meds, as per family, pt has history of COPD and emphysema and home meds reflect albuterol breathing treatments, as well as a po antibiotic. Am waiting for tax appraiser response.
[2019-10-26] MEDS ORDERED: ALBUTEROL SULFATE 2.5 MG/ 0.5 ML NEBU NEB PRN (21:15)
[2019-10-26] MEDS: ALBUTEROL SULFATE 2.5 MG/ 0.5 ML NEBU NEB PRN (22:13)
[2019-10-26] MEDS: IPRATROPIUM BROMIDE 0.5 MG/2.5 ML NEBU NEB PRN (22:13)
[2019-10-27 00:43] VITALS: BP 143/76
--- NOTE | 2019-10-27 02:57 | NUR ---
Nurse checked work email for promised DNR paperwork from LASHANDA Porter. No email received, either in inbox or junk mail. Will continue to check for email from LASHANDA.
[2019-10-27] MEDS: IPRATROPIUM BROMIDE 0.5 MG/2.5 ML NEBU NEB PRN (04:18)
[2019-10-27] MEDS: ALBUTEROL SULFATE 2.5 MG/ 0.5 ML NEBU NEB PRN (04:19)
[2019-10-27] MEDS: HYDROCODONE/APAP 5-325MG TABLET PO PRN ×2 (05:25→15:19)
[2019-10-27 05:28] VITALS: BP 145/87
--- NOTE | 2019-10-27 05:38 | NUR ---
Patient slept intermittently throughout night and initially would not take any pain medication based in part because an unknown pain medication he took at one time gave him hallucinations and in part because his after choking on oral medication. This morning patient was open to having his pain relieved with prescribed [place] and nurse made sure that patient drank water prior to taking the pill and drank an additional amount to swallow medication so as to prevent aspiration. Followup to check for promised email from Charlotte PYLE, with attached DNR documentation finds nothing received. Will have AM shift follow up to contact son and DIL to get DNR documentation and list of home medication regime. All nursing needs were met promptly. Periods of SOB were relieved with prescribed PRN breathing treatments provided by respiratory services. Call light and personal items remain within reach at all times. All safety and fall precaution measures remain in place.
[2019-10-27 06:58] LABS: BASOPHILS # (AUTO) 0.1 K/uL (0.0-8.0); BASOPHILS % (AUTO) 0.7 % (0.0-2.0); EOSINOPHILS # (AUTO) 0.3 K/uL (0.0-0.7); EOSINOPHILS % (AUTO) 2.2 % (0.0-7.0); HEMOGLOBIN 12.3 g/dL (12.5-16.3); LYMPHOCYTES # (AUTO) 0.8 K/uL (20.0-40.0); LYMPHOCYTES % (AUTO) 7.2 % (20.5-51.5); MEAN CORPUSCULAR HEMOGLOBIN 28.1 uug (23.8-33.4); MEAN CORPUSCULAR HGB CONC 33 g/dL (32.5-36.3); MEAN CORPUSCULAR VOLUME 84.3 fL (73.0-96.2); MONOCYTES # (AUTO) 1.3 K/uL (2.0-10.0); MONOCYTES % (AUTO) 11.4 % (0.0-11.0); NEUTROPHILS # (AUTO) 9.2 K/uL (1.8-8.9); NEUTROPHILS % (AUTO) 78.5 % (38.5-71.5); PLATELET COUNT (AUTO) 138 K/uL (152-348); RED BLOOD CELL COUNT(AUTO) 4.38 MIL/uL (4.06-5.63); WHITE BLOOD COUNT (AUTO) 11.7 K/uL (3.6-10.2)
[2019-10-27 07:02] LABS: CARBON DIOXIDE 24 mmol/L (21-32); CHLORIDE 104 mmol/L (98-107); CREATININE 1.8 mg/dL (0.6-1.3); GLUCOSE 109 mg/dL (74-106); MAGNESIUM 1.8 mg/dL (1.8-2.4); PHOSPHOROUS 2.8 mg/dL (2.5-4.9); POTASSIUM 4.3 mmol/L (3.5-5.1); UREA NITROGEN, BLOOD 38 mg/dL (7-18)
--- NOTE | 2019-10-27 08:00 | NUR ---
Righ leg internally rotated and shorter than the right leg. Pt is in no acute distress. IV on right f/a intact. Discuss plan of care with fall precaution and pain management. Applied ice on right leg. Pt is for right hemiarthroplasty tomorrow @ 930 scheduled. Call light is within reach.
[2019-10-27 11:50] VITALS: BP 130/70
[2019-10-27] MEDS ORDERED: ENOXAPARIN SODIUM 40 MG/0.4 ML DISP.SYRIN SQ ONE (13:15)
[2019-10-27] MEDS: LOSARTAN POTASSIUM 25 MG TABLET PO SCH (14:16)
[2019-10-27] MEDS: buPROPion SR 100 MG TABLET.SA PO SCH (14:16)
[2019-10-27 16:37] VITALS: BP 128/83
--- NOTE | 2019-10-27 18:30 | NUR ---
Pt more confused and sundowning. Spoke with family to reorient patient to time and place. Call light is within reach.
--- NOTE | 2019-10-27 19:20 | NUR ---
Received patient lying in bed. AAOX1 with periods of confusion. In no acute distress. O2 sat 4LPM via NC in place. NSR on tele at 87/min with rare PVC's. IV site on right FA intact and patent. Burgos catheter intact and draining via gravity. Safety measure initiated and call desai within reached.
[2019-10-27] MEDS: ATORVASTATIN 40 MG TABLET PO SCH (20:04)
[2019-10-27 20:41] VITALS: BP 151/91
[2019-10-28 00:24] VITALS: BP 139/73
[2019-10-28 05:46] VITALS: BP 133/70
--- NOTE | 2019-10-28 05:59 | NUR ---
AAOX1 with periods of confusion. In no acute distress. O2 sat 4LPM via NC in place. O2 sat at 90%. NSR on tele at with rare PVC's at 87/min. IV site on right FA intact and patent. Burgos catheter intact and draining via gravity. NPO status. Safety measure maintained and call desai within reached.
[2019-10-28 06:35] LABS: ALANINE AMINOTRANSFERASE 13 U/L (16-63); ALKALINE PHOSPHATASE 102 U/L (50-136); ASPARTATE AMINOTRANSFERASE 19 U/L (15-37); BILIRUBIN,TOTAL 1.2 mg/dL (0.2-1.0); CARBON DIOXIDE 23 mmol/L (21-32); CHLORIDE 104 mmol/L (98-107); CREATINE KINASE, TOTAL 198 U/L (39-308); CREATININE 1.5 mg/dL (0.6-1.3); GLUCOSE 105 mg/dL (74-106); MAGNESIUM 2.1 mg/dL (1.8-2.4); PHOSPHOROUS 2.4 mg/dL (2.5-4.9); POTASSIUM 3.9 mmol/L (3.5-5.1); TOTAL PROTEIN, SERUM 6.7 g/dL (6.4-8.2); UREA NITROGEN, BLOOD 36 mg/dL (7-18)
[2019-10-28 06:44] LABS: BASOPHILS # (AUTO) 0.1 K/uL (0.0-8.0); BASOPHILS % (AUTO) 0.7 % (0.0-2.0); EOSINOPHILS # (AUTO) 0.5 K/uL (0.0-0.7); EOSINOPHILS % (AUTO) 4.6 % (0.0-7.0); HEMATOCRIT 36.2 % (36.7-47.1); HEMOGLOBIN 11.9 g/dL (12.5-16.3); LYMPHOCYTES # (AUTO) 0.8 K/uL (20.0-40.0); LYMPHOCYTES % (AUTO) 7.5 % (20.5-51.5); MEAN CORPUSCULAR HEMOGLOBIN 27.9 uug (23.8-33.4); MEAN CORPUSCULAR HGB CONC 33 g/dL (32.5-36.3); MEAN CORPUSCULAR VOLUME 84.5 fL (73.0-96.2); MONOCYTES # (AUTO) 1.1 K/uL (2.0-10.0); MONOCYTES % (AUTO) 10.4 % (0.0-11.0); NEUTROPHILS # (AUTO) 8.1 K/uL (1.8-8.9); NEUTROPHILS % (AUTO) 76.8 % (38.5-71.5); PLATELET COUNT (AUTO) 142 K/uL (152-348); RED BLOOD CELL COUNT(AUTO) 4.29 MIL/uL (4.06-5.63); WHITE BLOOD COUNT (AUTO) 10.5 K/uL (3.6-10.2)
[2019-10-28] MEDS ORDERED: POLYMYXIN B SULFATE 500,000 UNITS, BACITRACIN 50,000 UNITS, NORMAL SALINE 20 ML MC ONE ×3 (07:45)
--- NOTE | 2019-10-28 08:00 | NUR ---
pt's sbp elevated 160's gave bp meds with sips of water. Pt with sister at bedside. Pt is in no acute distress. Preop checklist done. glasses and watch taken off pt and given to sister radha.
[2019-10-28] MEDS: LOSARTAN POTASSIUM 25 MG TABLET PO SCH (08:03)
[2019-10-28] MEDS ORDERED: BUPIVACAINE 0.25% 30 ML VIAL ONE (08:07)
[2019-10-28 08:55] VITALS: BP 150/86
--- NOTE | 2019-10-28 09:00 | NUR ---
report given to surgical team hernan. Notified of family questioning and requesting more information about dni status reversion policy. Sister radhaluna mccoy would like to speak with orthopedic and anesthesiologist. id band checked with name and . Call light is within reach.
[2019-10-28] MEDS ORDERED: DEXAMETHASONE SOD PHOSPHATE 4 MG INJ IV ONE (09:04)
[2019-10-28] MEDS ORDERED: VECURONIUM BROMIDE 10 MG VIAL IV ONE (09:04)
[2019-10-28] MEDS ORDERED: NEOSTIGMINE METHYLSULFATE 10 MG/10 ML VIAL IV ONE (09:04)
[2019-10-28] MEDS ORDERED: ONDANSETRON 4 MG/2 ML VIAL IV ONE (09:04)
[2019-10-28] MEDS ORDERED: GLYCOPYRROLATE 0.2 MG/ML VIAL MC ONE (09:04)
[2019-10-28] MEDS ORDERED: PROPOFOL 200 MG/20 ML BOTTLE IV ONE (09:04)
[2019-10-28] MEDS ORDERED: SEVOFLURANE 250 ML BOTTLE IH ONE (09:04)
[2019-10-28] MEDS ORDERED: CEFAZOLIN 1 G VIAL MC ONE (09:04)
[2019-10-28] MEDS ORDERED: NORMAL SALINE IR ONE (10:00)
[2019-10-28] MEDS ORDERED: TRANEXAMIC ACID IR ONE (10:00)
[2019-10-28] MEDS ORDERED: FENTANYL CITRATE 100 MCG/2 ML AMPUL ONE (11:28)
[2019-10-28] MEDS ORDERED: NORMAL SALINE IV ONE (11:30)
[2019-10-28] MEDS ORDERED: TRANEXAMIC ACID IV ONE (11:30)
[2019-10-28] MEDS ORDERED: ONDANSETRON 4 MG/2 ML VIAL ONE (11:38)
[2019-10-28 12:03] LABS: BASOPHILS # (AUTO) 0.1 K/uL (0.0-8.0); BASOPHILS % (AUTO) 0.4 % (0.0-2.0); EOSINOPHILS # (AUTO) 0.5 K/uL (0.0-0.7); EOSINOPHILS % (AUTO) 3.5 % (0.0-7.0); HEMATOCRIT 34.9 % (36.7-47.1); HEMOGLOBIN 11.4 g/dL (12.5-16.3); LYMPHOCYTES # (AUTO) 0.6 K/uL (20.0-40.0); MEAN CORPUSCULAR HEMOGLOBIN 27.8 uug (23.8-33.4); MEAN CORPUSCULAR HGB CONC 33 g/dL (32.5-36.3); MEAN CORPUSCULAR VOLUME 85.1 fL (73.0-96.2); MONOCYTES # (AUTO) 1.2 K/uL (2.0-10.0); MONOCYTES % (AUTO) 8.4 % (0.0-11.0); NEUTROPHILS # (AUTO) 12.2 K/uL (1.8-8.9); NEUTROPHILS % (AUTO) 83.7 % (38.5-71.5); PLATELET COUNT (AUTO) 130 K/uL (152-348); WHITE BLOOD COUNT (AUTO) 14.6 K/uL (3.6-10.2)
--- NOTE | 2019-10-28 12:30 | NUR ---
Received report from surgical team. Noted right hip surgical dressing intact and no bleeding noted. Pt able to wiggle toes bilaterally and pedal pulse palpated bilaterally. Applied ice on surgical site. O2 remains @ 4 liters with saturation of 94%. IV on right forearm intact. tele applied snr noted. scd pump appied to bilateral lower legs. Call light is within reach.
[2019-10-28 12:57] VITALS: BP 145/78
[2019-10-28] MEDS: buPROPion SR 100 MG TABLET.SA PO SCH (13:35)
[2019-10-28] MEDS ORDERED: LEVOFLOXACIN 500 MG/D5W 500 MG in PREMIXED 1 EACH IV ONE (14:00)
[2019-10-28] MEDS ORDERED: NEUTRA PHOS PACKET PO ONE ×2 (15:30)
[2019-10-28 16:49] VITALS: BP 158/95
[2019-10-28] MEDS: HYDROCODONE/APAP 5-325MG TABLET PO PRN ×2 (16:58→23:15)
[2019-10-28] MEDS: CEFAZOLIN 2 G in IV DEXTROSE 5% 100 ML IV SCH (18:29)
--- NOTE | 2019-10-28 19:20 | NUR ---
Received patient lying in bed. AAOX1 with periods of confusion. Family at bedside. In no acute distress. O2 sat 4LPM via NC in place. O2 sat at 95%. IV site on right FA intact and patent. Right hip with dressing intact and ice compress in place to help with pain. Abduction pillow in between legs. Patient was given [place] 2 tabs by AM nurse at 1658. Burgos catheter intact and draining via gravity. Safety measure initiated and call desai within reached.
[2019-10-28 20:16] VITALS: BP 156/92
[2019-10-28] MEDS: ATORVASTATIN 40 MG TABLET PO SCH (20:39)
[2019-10-29] MEDS: CEFAZOLIN 2 G in IV DEXTROSE 5% 100 ML IV SCH (01:13)
[2019-10-29] MEDS: HYDROCODONE/APAP 5-325MG TABLET PO PRN ×2 (03:45→10:45)
--- NOTE | 2019-10-29 04:04 | NUR ---
ADMITTED MALE WITH CHIEF COMPLAINT OF CHEST PAIN .NO CHEST PAIN NOTED,ORIENTED TO ROOM AND MADE COMFORTABLE
--- NOTE | 2019-10-29 06:08 | NUR ---
Patient asleep at this time. Remains AAOX1-2 with periods of confusion. Able to make needs known. In no acute distress. O2 sat 4LPM via NC in place. O2 sat at 94%. IV site on right FA intact and patent. Right hip with dressing intact and ice compress in place. Abduction pillow in between legs. [place] given for pain and with help. Burgos catheter intact and draining via gravity. Safety measure maintained and call desai within reached.
[2019-10-29 06:19] VITALS: BP 150/82
[2019-10-29 06:38] LABS: BASOPHILS % (AUTO) 0.2 % (0.0-2.0); EOSINOPHILS % (AUTO) 0.1 % (0.0-7.0); HEMATOCRIT 31.7 % (36.7-47.1); HEMOGLOBIN 10.8 g/dL (12.5-16.3); LYMPHOCYTES # (AUTO) 0.5 K/uL (20.0-40.0); LYMPHOCYTES % (AUTO) 4.8 % (20.5-51.5); MEAN CORPUSCULAR HEMOGLOBIN 28.4 uug (23.8-33.4); MEAN CORPUSCULAR HGB CONC 34 g/dL (32.5-36.3); MEAN CORPUSCULAR VOLUME 83.7 fL (73.0-96.2); MONOCYTES # (AUTO) 1.1 K/uL (2.0-10.0); MONOCYTES % (AUTO) 10.9 % (0.0-11.0); NEUTROPHILS # (AUTO) 8.9 K/uL (1.8-8.9); PLATELET COUNT (AUTO) 146 K/uL (152-348); RED BLOOD CELL COUNT(AUTO) 3.79 MIL/uL (4.06-5.63); WHITE BLOOD COUNT (AUTO) 10.5 K/uL (3.6-10.2)
[2019-10-29 06:40] LABS: CARBON DIOXIDE 25 mmol/L (21-32); CHLORIDE 102 mmol/L (98-107); CREATININE 1.5 mg/dL (0.6-1.3); GLUCOSE 128 mg/dL (74-106); MAGNESIUM 1.9 mg/dL (1.8-2.4); PHOSPHOROUS 3.1 mg/dL (2.5-4.9); POTASSIUM 3.9 mmol/L (3.5-5.1); UREA NITROGEN, BLOOD 37 mg/dL (7-18)
[2019-10-29] MEDS: buPROPion SR 100 MG TABLET.SA PO SCH (08:02)
[2019-10-29] MEDS: LOSARTAN POTASSIUM 25 MG TABLET PO SCH (08:03)
[2019-10-29] MEDS: ENOXAPARIN SODIUM 40 MG/0.4 ML DISP.SYRIN SQ SCH (08:04)
--- NOTE | 2019-10-29 09:00 | NUR ---
Pt tolerated physical therapy. Right hip surgical dressing still intact. ICe applied on surgical site to help with pain management. Abductor pillow in between legs. Pt is in no acute distress.
[2019-10-29] MEDS: DOCUSATE SODIUM 100 MG CAPSULE PO SCH ×2 (11:28→20:47)
--- NOTE | 2019-10-29 12:30 | NUR ---
Notified son GILES. pt taking norco for pain management and pt at risk for constipation. New order received for colace to prevent any constipation. New medication given.
[2019-10-29] MEDS ORDERED: LOSARTAN POTASSIUM 25 MG TABLET PO ONE (13:30)
[2019-10-29 13:44] VITALS: BP 121/67
[2019-10-29] MEDS: LEVOFLOXACIN/D5W 250 MG in PREMIX 1 EA IV SCH (13:51)
[2019-10-29 16:06] VITALS: BP 118/63
--- NOTE | 2019-10-29 18:12 | NUR ---
Pt's pain managed with NORCO and ice on surgical site. Dressing remains intact. Pt is in no acute distress. Pt has his abductor pillow. Call light is within reach.
--- NOTE | 2019-10-29 20:00 | NUR ---
Patient received into care, sitting up in bed, talking on telephone. Patient is alert/oriented x2 with periods of confusion. Patient has no complaints of pain or discomfort at this time and there are no signs/symptoms of acute distress or discomfort noted/observed by nurse. Personal items and call light are within reach. Safety and fall precaution measures are in place. Well continue to monitor and assess.
[2019-10-29] MEDS: ATORVASTATIN 40 MG TABLET PO SCH (20:47)
[2019-10-29 21:18] VITALS: BP 153/72
[2019-10-29] MEDS: DEXAMETHASONE SOD PHOSPHATE 4 MG INJ IV SCH (21:39)
[2019-10-30 05:06] VITALS: BP 165/89
--- NOTE | 2019-10-30 06:00 | NUR ---
Patient slept throughout night with no complaints of pain or discomfort verbalized or noted/observed by nurse. All nursing care met promptly and patient is warm, dry and comfortable. All safety and fall precaution measures remain in place. Call light and personal items are within reach at all times.
[2019-10-30 06:06] LABS: A/G RATIO 0.8 (0.7-1.7); ALBUMIN 2.9 g/dL (2.9-4.4); ALPHA-1-GLOBULIN 0.5 g/dL (0.0-0.4); ALPHA-2-GLOBULIN 1.1 g/dL (0.4-1.0); BETA GLOBULIN 0.9 g/dL (0.7-1.3); GLOBULIN, TOTAL 3.5 g/dL (2.2-3.9); M-SPIKE Not Observed g/dL (Not Observed)
[2019-10-30 08:36] LABS: THYROID STIMULATING HORMONE 1.083 mIU/mL (0.358-3.740)
[2019-10-30 08:42] LABS: BASOPHILS % (AUTO) 0.1 % (0.0-2.0); EOSINOPHILS % (AUTO) 0.1 % (0.0-7.0); HEMATOCRIT 31.5 % (36.7-47.1); HEMOGLOBIN 10.6 g/dL (12.5-16.3); LYMPHOCYTES # (AUTO) 0.5 K/uL (20.0-40.0); LYMPHOCYTES % (AUTO) 5.6 % (20.5-51.5); MEAN CORPUSCULAR HEMOGLOBIN 28.3 uug (23.8-33.4); MEAN CORPUSCULAR HGB CONC 34 g/dL (32.5-36.3); MEAN CORPUSCULAR VOLUME 84.1 fL (73.0-96.2); MONOCYTES # (AUTO) 0.8 K/uL (2.0-10.0); MONOCYTES % (AUTO) 8.7 % (0.0-11.0); NEUTROPHILS # (AUTO) 7.6 K/uL (1.8-8.9); NEUTROPHILS % (AUTO) 85.5 % (38.5-71.5); PLATELET COUNT (AUTO) 198 K/uL (152-348); RED BLOOD CELL COUNT(AUTO) 3.74 MIL/uL (4.06-5.63); WHITE BLOOD COUNT (AUTO) 8.9 K/uL (3.6-10.2)
[2019-10-30 09:03] LABS: CHLORIDE 104 mmol/L (98-107); POTASSIUM 4.3 mmol/L (3.5-5.1)
[2019-10-30] MEDS: LOSARTAN POTASSIUM 25 MG TABLET PO SCH (10:35)
[2019-10-30] MEDS: DEXAMETHASONE SOD PHOSPHATE 4 MG INJ IV SCH ×2 (10:35→21:42)
[2019-10-30] MEDS: DOCUSATE SODIUM 100 MG CAPSULE PO SCH ×2 (10:35→21:42)
[2019-10-30] MEDS: buPROPion SR 100 MG TABLET.SA PO SCH (10:35)
[2019-10-30] MEDS: ENOXAPARIN SODIUM 40 MG/0.4 ML DISP.SYRIN SQ SCH (10:37)
[2019-10-30 11:20] VITALS: BP 140/80
[2019-10-30 11:20] LABS: CARBON DIOXIDE 23 mmol/L (21-32); CREATININE 1.4 mg/dL (0.6-1.3); GLUCOSE 135 mg/dL (74-106); UREA NITROGEN, BLOOD 36 mg/dL (7-18)
[2019-10-30] MEDS: LEVOFLOXACIN/D5W 250 MG in PREMIX 1 EA IV SCH (13:17)
[2019-10-30] MEDS: ACETAMINOPHEN 325 MG TABLET PO PRN ×2 (13:20→21:42)
[2019-10-30 15:25] VITALS: BP 124/70
--- NOTE | 2019-10-30 15:26 | NUR ---
Received pt. resting in bed alert oriented x2-3. Pt. denies SOB/ difficulty breathing. Pt. denies pain/ discomfort. Pt. has IV in R AC 18 gauge intact patent saline lock. Pt. on 4 L NC. Pt. has abductor between legs s/p R hip surgery. Safety measures in place. Call light within reach. Will continue to monitor pt.
--- NOTE | 2019-10-30 15:28 | NUR ---
Spoke to Mary sister about MRI of spine for cord stenosis. Pt. and sister agreed to MRI and confirmed mesh stents are made from [employer] called [facility] at [facility] to report it is not metal. Filled out MRI checklist with pt. and sister. pt. to have MRI done at [facility] today. Pt. and signed consent form. Awaiting ambulance pickup.
--- NOTE | 2019-10-30 18:39 | NUR ---
Pt. returned back from MRI. Pt. denies pain/ discomfort. Pt. denies SOB/ difficulty breathing on 4 L NC. Burgos catheter in place draining clear yellow urine. Safety measures in place. Will endorse to PM nurse
--- NOTE | 2019-10-30 20:00 | NUR ---
PATIENT RECEIVED INTO CARE, LAYING IN BED, RESTING COMFORTABLY. PATIENT IS ALERT/ORIENTED X1 AND HAS NO COMPLAINTS OF PAIN OR DISCOMFORT AT THIS TIME. SAFETY AND FALL PRECAUTION MEASURES ARE IN PLACE. CALL LIGHT AND PERSONAL ITEMS ARE WITHIN REACH. WILL CONTINUE TO MONITOR AND ASSESS.
[2019-10-30 21:00] VITALS: BP 170/90
[2019-10-30] MEDS: ATORVASTATIN 40 MG TABLET PO SCH (21:42)
[2019-10-31 04:13] VITALS: BP 117/87
[2019-10-31 04:16] VITALS: BP 117/87
[2019-10-31] MEDS: ACETAMINOPHEN 325 MG TABLET PO PRN ×2 (06:32→21:12)
[2019-10-31 07:04] LABS: BASOPHILS % (AUTO) 0.1 % (0.0-2.0); HEMATOCRIT 30.1 % (36.7-47.1); HEMOGLOBIN 10.1 g/dL (12.5-16.3); LYMPHOCYTES # (AUTO) 0.5 K/uL (20.0-40.0); LYMPHOCYTES % (AUTO) 4.9 % (20.5-51.5); MEAN CORPUSCULAR HGB CONC 34 g/dL (32.5-36.3); MEAN CORPUSCULAR VOLUME 83.6 fL (73.0-96.2); MONOCYTES # (AUTO) 0.9 K/uL (2.0-10.0); MONOCYTES % (AUTO) 8.9 % (0.0-11.0); NEUTROPHILS # (AUTO) 8.4 K/uL (1.8-8.9); NEUTROPHILS % (AUTO) 86.1 % (38.5-71.5); PLATELET COUNT (AUTO) 238 K/uL (152-348); WHITE BLOOD COUNT (AUTO) 9.8 K/uL (3.6-10.2)
[2019-10-31 07:15] LABS: CREATININE 1.3 mg/dL (0.6-1.3); POTASSIUM 3.9 mmol/L (3.5-5.1)
[2019-10-31] MEDS: LOSARTAN POTASSIUM 25 MG TABLET PO SCH (08:13)
[2019-10-31] MEDS: DOCUSATE SODIUM 100 MG CAPSULE PO SCH ×2 (08:13→21:12)
[2019-10-31] MEDS: buPROPion SR 100 MG TABLET.SA PO SCH (08:13)
[2019-10-31] MEDS: ENOXAPARIN SODIUM 40 MG/0.4 ML DISP.SYRIN SQ SCH (08:14)
[2019-10-31] MEDS: DEXAMETHASONE SOD PHOSPHATE 4 MG INJ IV SCH (08:16)
[2019-10-31] MEDS: HYDROCODONE/APAP 5-325MG TABLET PO PRN (09:12)
[2019-10-31 11:47] VITALS: BP 113/71
[2019-10-31] MEDS: LEVOFLOXACIN/D5W 250 MG in PREMIX 1 EA IV SCH (13:41)
[2019-10-31 15:28] VITALS: BP 156/89
[2019-10-31 20:00] VITALS: BP 135/64
[2019-10-31] MEDS: ATORVASTATIN 40 MG TABLET PO SCH (21:13)
[2019-11-01 04:00] VITALS: BP 141/67
--- NOTE | 2019-11-01 06:00 | NUR ---
Patient slept comfortably throughout night with complaints of pain addressed with prescribed analgesics. All prescribed medications provided as ordered and tolerated well, with no adverse side effects verbalized by patient or noted/observed by nurse. Patient is warm, dry, and comfortable. Call light remains within reach at all times. Safety and fall precaution measures remain in place.
[2019-11-01 06:56] LABS: CREATININE 1.3 mg/dL (0.6-1.3); POTASSIUM 3.9 mmol/L (3.5-5.1)
[2019-11-01 07:39] LABS: BASOPHILS % (AUTO) 0.1 % (0.0-2.0); EOSINOPHILS % (AUTO) 0.4 % (0.0-7.0); HEMATOCRIT 30.1 % (36.7-47.1); LYMPHOCYTES # (AUTO) 1.5 K/uL (20.0-40.0); LYMPHOCYTES % (AUTO) 13.5 % (20.5-51.5); MEAN CORPUSCULAR HGB CONC 33 g/dL (32.5-36.3); MEAN CORPUSCULAR VOLUME 84.1 fL (73.0-96.2); MONOCYTES # (AUTO) 1.3 K/uL (2.0-10.0); MONOCYTES % (AUTO) 11.2 % (0.0-11.0); NEUTROPHILS # (AUTO) 8.5 K/uL (1.8-8.9); NEUTROPHILS % (AUTO) 74.8 % (38.5-71.5); PLATELET COUNT (AUTO) 262 K/uL (152-348); RED BLOOD CELL COUNT(AUTO) 3.58 MIL/uL (4.06-5.63); WHITE BLOOD COUNT (AUTO) 11.3 K/uL (3.6-10.2)
[2019-11-01] MEDS: DOCUSATE SODIUM 100 MG CAPSULE PO SCH ×2 (08:05→20:10)
[2019-11-01] MEDS: LOSARTAN POTASSIUM 25 MG TABLET PO SCH (08:05)
[2019-11-01] MEDS: buPROPion SR 100 MG TABLET.SA PO SCH (08:05)
[2019-11-01] MEDS: ENOXAPARIN SODIUM 40 MG/0.4 ML DISP.SYRIN SQ SCH (08:15)
[2019-11-01 10:10] LABS: BAND % (MANUAL) 2 % (0-10); EOSINOPHILS % (MANUAL) 1 % (0-8); LYMPHOCYTES % (MANUAL) 10 % (20-40); MONOCYTES % (MANUAL) 13 % (2-10); NEUTROPHILS % (MANUAL) 74 % (42-75)
[2019-11-01 11:36] VITALS: BP 123/69
[2019-11-01] MEDS ORDERED: LEVOFLOXACIN 250 MG TABLET PO SCH (14:00)
--- NOTE | 2019-11-01 15:09 | NUR ---
dc folly catheter per md orders
[2019-11-01 15:38] VITALS: BP 140/74
[2019-11-01] MEDS: HYDROCODONE/APAP 5-325MG TABLET PO PRN (19:36)
[2019-11-01 19:45] VITALS: BP 154/85
[2019-11-01] MEDS: ATORVASTATIN 40 MG TABLET PO SCH (20:10)
--- NOTE | 2019-11-01 20:43 | NUR ---
dc orders received noted and carried out ,dc instructing and rn report given to over rehab specialist , pt left the floor with iv heplock via bed in stable condition
== END 2019-11-01 21:42 | DRG 469 ==
LOC: ER 16:08 → TELE3 20:40 → MEDSURG3 10-28 12:00
PROVIDERS: ADMIT Nurse Practitioner Acute Care; ATTEND Nurse Practitioner Acute Care
PROC: 0SRR0JA Replacement of Right Hip Joint, Femoral Surface with Synthetic Substitute, Uncemented, Open Approach (ICD-10-PCS; principal; 2019-10-28)
DX: M80.051A Age-related osteoporosis with current pathological fracture, right femur, initial encounter for fracture (principal); N17.0 Acute kidney failure with tubular necrosis; J18.9 Pneumonia, unspecified organism; E43 Unspecified severe protein-calorie malnutrition; G95.89 Other specified diseases of spinal cord; J96.11 Chronic respiratory failure with hypoxia; N13.0 Hydronephrosis with ureteropelvic junction obstruction; X58.XXXA Exposure to other specified factors, initial encounter; Y93.9 Activity, unspecified; Y92.009 Unspecified place in unspecified non-institutional (private) residence as the place of occurrence of the external cause; N18.9 Chronic kidney disease, unspecified; I12.9 Hypertensive chronic kidney disease with stage 1 through stage 4 chronic kidney disease, or unspecified chronic kidney disease; W01.0XXA Fall on same level from slipping, tripping and stumbling without subsequent striking against object, initial encounter; Y92.010 Kitchen of single-family (private) house as the place of occurrence of the external cause; J43.2 Centrilobular emphysema; M48.02 Spinal stenosis, cervical region; R91.1 Solitary pulmonary nodule; F03.90 Unspecified dementia, unspecified severity, without behavioral disturbance, psychotic disturbance, mood disturbance, and anxiety; M25.78 Osteophyte, vertebrae; Z87.891 Personal history of nicotine dependence; I27.20 Pulmonary hypertension, unspecified; R91.8 Other nonspecific abnormal finding of lung field; I71.2 Thoracic aortic aneurysm, without rupture; M16.11 Unilateral primary osteoarthritis, right hip; Z86.73 Personal history of transient ischemic attack (TIA), and cerebral infarction without residual deficits; I45.10 Unspecified right bundle-branch block; E78.5 Hyperlipidemia, unspecified; E78.00 Pure hypercholesterolemia, unspecified; Z99.81 Dependence on supplemental oxygen; Z95.828 Presence of other vascular implants and grafts
CPT/HCPCS: 36415; 70030-TC; 70450; 71045; 71250; 72125; 72141; 72170; 73502; 83550; 83735; 83970; 84100; 84155; 84165; 84443; 85025; 85730; 86850; 86900; 86901; 93005; 93307; 94640; 94664; A4649; A4663; G0378; J0690; J1100; J1650; J1956; J2270; J2405; J2710; J2765; J3010; J3490; J3590; J7030; J7050; J7060; Q9967

== ENCOUNTER 2019-11-01 20:52 | Inpatient (IN) | payer MEDICARE, OTHER ==
[~2019-11-01] VITALS: Ht 172.7 cm; Wt 73.0 kg
[2019-11-01 21:00] VITALS: BP 160/77
[2019-11-01] MEDS ORDERED: Z GUARD REMEDY PASTE 57 GM TUBE TOP PRN (21:00)
--- NOTE | 2019-11-02 06:37 | NUR ---
Admitted an 84 year old male from Med-surg with admitting diagnosis of S/P right hip ORIF on 10/28/[address] Cowan. AAOx4 VSS No acute distress noted. Hx of COPD, HTN, Renal insufficiency,Arthritis, Anxiety, Chronic Back pain, cervical stenosis. Voiding freely in urinal with some periods of incontinence. Right hip dressing with mulugeta intact, with some bruising noted. Denies any pain nor any discomfort. Patient has a #20 right forearm INT. Needs attended. Fall precautions maintained. Siderails up for safety. Abduction pillow in between legs. No acute distress noted.
[2019-11-02 06:52] VITALS: BP 158/81
[2019-11-02] MEDS: DOCUSATE SODIUM 100 MG CAPSULE PO SCH ×2 (08:09→20:15)
[2019-11-02] MEDS: LOSARTAN POTASSIUM 50 MG TABLET PO SCH (08:10)
[2019-11-02] MEDS: HYDROCODONE/APAP 5-325MG TABLET PO PRN ×3 (08:12→20:18)
[2019-11-02] MEDS: ENOXAPARIN SODIUM 40 MG/0.4 ML DISP.SYRIN SQ SCH (08:20)
[2019-11-02 08:26] VITALS: BP 156/86
[2019-11-02] MEDS: buPROPion SR 100 MG TABLET.SA PO SCH (09:25)
[2019-11-02] MEDS: LEVOFLOXACIN 250 MG TABLET PO SCH (14:30)
[2019-11-02 16:39] VITALS: BP 140/74
--- NOTE | 2019-11-02 16:49 | NUR ---
ALERT, AWAKE, NO DISTRESS NOTED, TOLERATED SHOWER, MEDS, MEALS WELL, INCISION SITE IS CLEAN AND DRY, NO DRAINAGE NOTED, NEEDS ATTENDED TIMELY, CALL LIGHT WITH IN REACH
[2019-11-02] MEDS: ATORVASTATIN 40 MG TABLET PO SCH (17:29)
--- NOTE | 2019-11-02 18:35 | NUR ---
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
--- NOTE | 2019-11-02 18:41 | NUR ---
RECIEVED CALL BACK FROM ALYCE KAHN, WITH ORDER TO START PATIENT ON BACTOBAN OINT FOR BOTH NARES ORDERED Addendum: 11/02/19 at 1843 by GM LU RN, RN CORRECTION: FADY KAHN
--- NOTE | 2019-11-02 19:30 | NUR ---
On contact isolation for MRSA nares. Contact precautions observed. Will continue to monitor.
[2019-11-02 19:55] VITALS: BP 113/45
[2019-11-02] MEDS: FERROUS SULFATE 325 MG TABEC PO SCH (20:15)
[2019-11-02] MEDS: MUPIROCIN 2% OINT 22 GM TUBE NS SCH (20:15)
[2019-11-03 04:52] VITALS: BP 154/70
[2019-11-03] MEDS: HYDROCODONE/APAP 5-325MG TABLET PO PRN ×3 (05:09→21:46)
--- NOTE | 2019-11-03 06:26 | NUR ---
C/o pain right hip, [place] was given. Pt is resting at this time, watching tv. Contact/ safety precautions maintained throughout the night.
[2019-11-03] MEDS: LOSARTAN POTASSIUM 50 MG TABLET PO SCH (09:00)
[2019-11-03] MEDS: CYANOCOBALAMIN 1,000 MCG TABLET PO SCH (09:02)
[2019-11-03] MEDS: FERROUS SULFATE 325 MG TABEC PO SCH ×2 (09:02→20:12)
[2019-11-03] MEDS: DOCUSATE SODIUM 100 MG CAPSULE PO SCH ×2 (09:03→20:12)
[2019-11-03] MEDS: buPROPion SR 100 MG TABLET.SA PO SCH (09:03)
[2019-11-03] MEDS: MUPIROCIN 2% OINT 22 GM TUBE NS SCH ×2 (09:04→20:12)
[2019-11-03] MEDS: ENOXAPARIN SODIUM 40 MG/0.4 ML DISP.SYRIN SQ SCH (09:09)
[2019-11-03 09:50] VITALS: BP 99/54
[2019-11-03] MEDS: ENSURE WITH FIBER 237 ML LIQUID (CHOCOLATE) PO SCH ×2 (13:45→17:00)
[2019-11-03] MEDS: LEVOFLOXACIN 250 MG TABLET PO SCH (13:50)
--- NOTE | 2019-11-03 14:23 | NUR ---
Pt received, assessed, no acute distress or SOB. VSS. Pt reports pain 7/10, [place] 5 administered per PRN orders. Pt able to make needs known. AAOx2-3. Pt compliant with routine morning medications. Right hip incision dressing clean and dry. Repositioned for comfort. Call light and personal items placed within reach. Contact isolation precautions implemented and maintained. All comfort and safety needs met. Will continue to monitor.
[2019-11-03 16:06] VITALS: BP 109/51
[2019-11-03] MEDS: ATORVASTATIN 40 MG TABLET PO SCH (17:07)
[2019-11-03 19:57] VITALS: BP 113/56
--- NOTE | 2019-11-04 04:24 | NUR ---
Received patient in bed. AAO x2-3. Not in acute distress or SOB. On room air. Able to make needs known. Complain of pain of right hip, rated 6/10 in numeric scale. Narco 5-325 mg given and effective. Ice bag provided. Physical assessment done.Pain assessed and reassessed after pain medication. IV line on his right hand, G20, flushed, patent, no sign of inflammation. All due medication given and well tolerated. All needs attended promptly. Fall prevention observed. Safety measures maintained. Bed in low and lock position, alarm on, side rails up x2 for safety. Call light and frequently used items within reach. Continue to monitor and will endorse to oncoming nurse.
[2019-11-04 04:42] VITALS: BP 120/67
[2019-11-04] MEDS: HYDROCODONE/APAP 5-325MG TABLET PO PRN ×3 (06:02→21:29)
[2019-11-04 08:00] VITALS: BP 147/70
[2019-11-04] MEDS: LOSARTAN POTASSIUM 50 MG TABLET PO SCH (08:54)
[2019-11-04] MEDS: FERROUS SULFATE 325 MG TABEC PO SCH ×2 (08:54→20:25)
[2019-11-04] MEDS: DOCUSATE SODIUM 100 MG CAPSULE PO SCH ×2 (08:54→20:25)
[2019-11-04] MEDS: CYANOCOBALAMIN 1,000 MCG TABLET PO SCH (08:54)
[2019-11-04] MEDS: ENSURE WITH FIBER 237 ML LIQUID (CHOCOLATE) PO SCH ×3 (08:55→17:26)
[2019-11-04] MEDS: MUPIROCIN 2% OINT 22 GM TUBE NS SCH ×2 (08:55→20:26)
[2019-11-04] MEDS: buPROPion SR 100 MG TABLET.SA PO SCH (08:59)
[2019-11-04] MEDS: ENOXAPARIN SODIUM 40 MG/0.4 ML DISP.SYRIN SQ SCH (09:00)
--- NOTE | 2019-11-04 09:02 | NUR ---
INDIVIDUALIZED PLAN OF CARE
[2019-11-04 16:00] VITALS: BP 122/84
[2019-11-04] MEDS: ATORVASTATIN 40 MG TABLET PO SCH (17:36)
[2019-11-04] MEDS: BISACODYL 5 MG TABLET.DR PO PRN (17:37)
--- NOTE | 2019-11-04 18:20 | NUR ---
Patient is AAO x 3 with episodes of forgetfulness noted. No SOB or acute distress noted. Vital signs stable. Afebrile. Due medications administered and tolerated well. Pt. is on [place] 5/325mg 1 tab for moderate pain and 2 tabs for severe pain. Pain medication administered before PT/OT for pain level of 6/10 when being moved and effective. Surgical site on right hip dry and intact. NO s/sx of infection noted on site. Safety measures in place, needs attended and met, family was here to visit, call light left at bed side, endorsed to next shift and will continue with care.
[2019-11-04 20:00] VITALS: BP 136/74
--- NOTE | 2019-11-05 04:44 | NUR ---
Received patient in bed. AAO x2-3. Not in acute distress or SOB. On room air. Able to make needs known. Complained of pain of right hip, rated 6/10 in numeric scale. Narco 5-325 mg given and effective. Physical assessment done.Pain assessed and reassessed after pain medication. IV line on his right hand removed. All due medication given and well tolerated. All needs attended promptly. Fall prevention observed. Safety measures maintained. Bed in low and lock position, alarm on, side rails up x2 for safety. Call light and frequently used items within reach. Continue to monitor and will endorse to oncoming nurse accordingly.
[2019-11-05 05:47] VITALS: BP 133/81
[2019-11-05 07:12] LABS: BASOPHILS # (AUTO) 0.1 K/uL (0.0-8.0); EOSINOPHILS # (AUTO) 0.4 K/uL (0.0-0.7); MONOCYTES # (AUTO) 1.2 K/uL (2.0-10.0)
[2019-11-05 07:24] LABS: CARBON DIOXIDE 24 mmol/L (21-32); CHLORIDE 108 mmol/L (98-107); CREATININE 1.3 mg/dL (0.6-1.3); GLUCOSE 101 mg/dL (74-106); PHOSPHOROUS 3.1 mg/dL (2.5-4.9); POTASSIUM 4.1 mmol/L (3.5-5.1); UREA NITROGEN, BLOOD 34 mg/dL (7-18)
[2019-11-05 07:42] LABS: BASOPHILS % (AUTO) 0.6 % (0.0-2.0); EOSINOPHILS % (AUTO) 3.4 % (0.0-7.0); HEMATOCRIT 30.2 % (36.7-47.1); HEMOGLOBIN 10.2 g/dL (12.5-16.3); LYMPHOCYTES # (AUTO) 1.7 K/uL (20.0-40.0); LYMPHOCYTES % (AUTO) 14.2 % (20.5-51.5); MEAN CORPUSCULAR HEMOGLOBIN 28.4 uug (23.8-33.4); MEAN CORPUSCULAR HGB CONC 34 g/dL (32.5-36.3); MEAN CORPUSCULAR VOLUME 83.8 fL (73.0-96.2); MONOCYTES % (AUTO) 10.5 % (0.0-11.0); NEUTROPHILS # (AUTO) 8.3 K/uL (1.8-8.9); NEUTROPHILS % (AUTO) 71.3 % (38.5-71.5); WHITE BLOOD COUNT (AUTO) 11.7 K/uL (3.6-10.2)
[2019-11-05 07:43] LABS: PLATELET COUNT (AUTO) 382 K/uL (152-348)
[2019-11-05 08:17] VITALS: BP 157/79
[2019-11-05] MEDS: ENOXAPARIN SODIUM 40 MG/0.4 ML DISP.SYRIN SQ SCH (08:56)
[2019-11-05] MEDS: DOCUSATE SODIUM 100 MG CAPSULE PO SCH ×2 (08:57→20:44)
[2019-11-05] MEDS: LOSARTAN POTASSIUM 50 MG TABLET PO SCH (08:57)
[2019-11-05] MEDS: buPROPion SR 100 MG TABLET.SA PO SCH (08:58)
[2019-11-05] MEDS: CYANOCOBALAMIN 1,000 MCG TABLET PO SCH (08:58)
[2019-11-05] MEDS: FERROUS SULFATE 325 MG TABEC PO SCH ×2 (08:58→20:44)
[2019-11-05] MEDS: MUPIROCIN 2% OINT 22 GM TUBE NS SCH ×2 (08:59→20:44)
[2019-11-05] MEDS: ENSURE WITH FIBER 237 ML LIQUID (CHOCOLATE) PO SCH ×3 (09:00→17:03)
[2019-11-05 10:21] LABS: EOSINOPHILS % (MANUAL) 3 % (0-8); LYMPHOCYTES % (MANUAL) 12 % (20-40); METAMYELOCYTES % 2 % (0-1); MONOCYTES % (MANUAL) 10 % (2-10); MYELOCYTES % 3 % (0-0); NEUTROPHILS % (MANUAL) 70 % (42-75)
[2019-11-05] MEDS: HYDROCODONE/APAP 5-325MG TABLET PO PRN ×2 (11:14→22:20)
[2019-11-05 15:27] VITALS: BP 104/50
--- NOTE | 2019-11-05 15:50 | NUR ---
PATIENT IS ALERT, AWAKE, NO SOB, RESP EVEN NONLABORED, SKIN WARM AND DRY TO TOUCH, NO DISTRSS NOTED, NO INCREASED BODY TEMP NOTED, NO COUGH, NO CONGESTION NOTED, INCISION SITE IS CLEAN AND DRY.
--- NOTE | 2019-11-05 16:30 | NUR ---
EXAMINED BY DR READ NEUROSURGEON, QUESTION AND CONCENRED OF FAMILY ANSWERED BY SURGEONS
[2019-11-05] MEDS: ATORVASTATIN 40 MG TABLET PO SCH (17:03)
--- NOTE | 2019-11-05 19:40 | NUR ---
Sleeping during initial rounds. No s/s of respiratory distress. Safety measures and fall precaution maintained. Continue care as planned.
[2019-11-05 20:00] VITALS: BP 119/78
[2019-11-06 05:00] VITALS: BP 132/74
[2019-11-06 05:51] VITALS: BP 132/74
--- NOTE | 2019-11-06 06:39 | NUR ---
Shift End Report: Vs stable. Medicated once for pain with relief. No further complaint presented. No significant event reported all night. All needs attended and met. Continue current rehab plan of care.
[2019-11-06 07:36] VITALS: BP 128/73
[2019-11-06] MEDS: HYDROCODONE/APAP 5-325MG TABLET PO PRN (07:52)
[2019-11-06] MEDS: buPROPion SR 100 MG TABLET.SA PO SCH (08:08)
[2019-11-06] MEDS: FERROUS SULFATE 325 MG TABEC PO SCH ×2 (08:09→20:32)
[2019-11-06] MEDS: CYANOCOBALAMIN 1,000 MCG TABLET PO SCH (08:09)
[2019-11-06] MEDS: DOCUSATE SODIUM 100 MG CAPSULE PO SCH ×2 (08:09→20:32)
[2019-11-06] MEDS: ENSURE WITH FIBER 237 ML LIQUID (CHOCOLATE) PO SCH ×3 (08:10→16:24)
[2019-11-06] MEDS: LOSARTAN POTASSIUM 50 MG TABLET PO SCH (08:10)
[2019-11-06] MEDS: MUPIROCIN 2% OINT 22 GM TUBE NS SCH ×2 (08:11→20:32)
[2019-11-06] MEDS: ENOXAPARIN SODIUM 40 MG/0.4 ML DISP.SYRIN SQ SCH (08:18)
--- NOTE | 2019-11-06 12:50 | NUR ---
PATIENT LEFT FOR APT WITH MACHINE PACKAGE SEALER FOR ORTHO APT, NO DISTRESS NOTED
[2019-11-06] MEDS: ACETAMINOPHEN 325 MG TABLET PO SCH ×2 (14:00→21:42)
--- NOTE | 2019-11-06 15:11 | NUR ---
CAME BACK FROM ORTHO APT WITH ORDER WBAT, FOLLOW UP IN 3 MONTHS, LAUREN REMOVED, STERI STRIPS INTACT, NO DISTRESS NOTED Addendum: 11/06/19 at 1519 by GM LU RN RN OFFERED TYLENOL, PATIENT STATED HE DOES NOT HAVE ANY KIND OF PAIN THIS TIME. PATIENT DOES NOT WANT TO TAKE TYLENOL THIS TIME, HOWEVER STATED THAT HE RATHER HAVE TYLENOL NOT NORCO FOR PAIN, WILL TAKE TYLENOL NEXT SCHEDULED TIME
[2019-11-06 15:14] VITALS: BP 113/60
[2019-11-06] MEDS: ATORVASTATIN 40 MG TABLET PO SCH (18:22)
[2019-11-06 19:04] LABS: *OCCULT BLOOD STOOL NEGATIVE (NEGATIVE)
[2019-11-06 20:11] VITALS: BP 118/76
--- NOTE | 2019-11-06 20:11 | NUR ---
Awake, in bed, busy talking in the phone. No s/s of pain/discomforts at this time. Continue care as planned.
[2019-11-07] MEDS: HYDROCODONE/APAP 5-325MG TABLET PO PRN ×2 (02:31→10:42)
[2019-11-07 04:00] VITALS: BP 110/70
[2019-11-07] MEDS: ACETAMINOPHEN 325 MG TABLET PO SCH ×3 (06:12→21:01)
--- NOTE | 2019-11-07 07:04 | NUR ---
Shift End Report: VS stable. Slept well. Medicated once for pain with relief. No further complaint presented. No significant event reported . Continue current rehab plan of care.
[2019-11-07 07:47] VITALS: BP 124/70
[2019-11-07] MEDS: buPROPion SR 100 MG TABLET.SA PO SCH (08:31)
[2019-11-07] MEDS: CYANOCOBALAMIN 1,000 MCG TABLET PO SCH (08:31)
[2019-11-07] MEDS: FERROUS SULFATE 325 MG TABEC PO SCH ×2 (08:31→21:01)
[2019-11-07] MEDS: MUPIROCIN 2% OINT 22 GM TUBE NS SCH ×2 (08:31→21:02)
[2019-11-07] MEDS: DOCUSATE SODIUM 100 MG CAPSULE PO SCH ×2 (08:31→21:01)
[2019-11-07] MEDS: ENSURE WITH FIBER 237 ML LIQUID (CHOCOLATE) PO SCH ×3 (08:32→17:09)
[2019-11-07] MEDS: LOSARTAN POTASSIUM 50 MG TABLET PO SCH (08:32)
[2019-11-07] MEDS: ENOXAPARIN SODIUM 40 MG/0.4 ML DISP.SYRIN SQ SCH (08:37)
--- NOTE | 2019-11-07 08:40 | NUR ---
Patient awake, alert, oriented x 3, not in any form of acute distress, on room air. He denies any pain or discomfort at this time. Due medications administered and tolerated well. Assisted with his need promptly. 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 Surgical incision site kept clean and dry with steri-strips on, no noted signs of infection. Patient up on the wheelchair at this time with occupational therapist to go for therapeutic exercises.
[2019-11-07 15:42] VITALS: BP 112/73
[2019-11-07] MEDS: ATORVASTATIN 40 MG TABLET PO SCH (17:09)
[2019-11-07 20:55] VITALS: BP 126/69
--- NOTE | 2019-11-07 21:10 | NUR ---
Pt assisted to the bathroom using walker, minimum assist. AAO x3. No acute distress noted. Denies pain/ discomfort. Due meds given as ordered. Surgical site clean and dry. No s/s of infection noted. VSS. Safety measures and contact isolation for MRSA nares maintained. Call light and personal items within reach. Will continue to monitor.
[2019-11-08 05:51] VITALS: BP 128/70
[2019-11-08] MEDS: ACETAMINOPHEN 325 MG TABLET PO SCH ×3 (05:54→21:12)
[2019-11-08 08:18] VITALS: BP 111/66
[2019-11-08] MEDS: CYANOCOBALAMIN 1,000 MCG TABLET PO SCH (08:24)
[2019-11-08] MEDS: FERROUS SULFATE 325 MG TABEC PO SCH ×2 (08:24→21:12)
[2019-11-08] MEDS: buPROPion SR 100 MG TABLET.SA PO SCH (08:24)
[2019-11-08] MEDS: DOCUSATE SODIUM 100 MG CAPSULE PO SCH ×2 (08:24→21:12)
[2019-11-08] MEDS: ENOXAPARIN SODIUM 40 MG/0.4 ML DISP.SYRIN SQ SCH (08:25)
[2019-11-08] MEDS: LOSARTAN POTASSIUM 50 MG TABLET PO SCH (08:25)
[2019-11-08] MEDS: MUPIROCIN 2% OINT 22 GM TUBE NS SCH ×2 (08:26→21:13)
[2019-11-08] MEDS: ENSURE WITH FIBER 237 ML LIQUID (CHOCOLATE) PO SCH ×3 (08:26→17:00)
[2019-11-08] MEDS: HYDROCODONE/APAP 5-325MG TABLET PO PRN (08:32)
--- NOTE | 2019-11-08 09:53 | NUR ---
PATIENT VERBALIZED FEELING NERVOUS,AND COULD NOT SLEEP WELL AT NIGHT EITHER BECAUSE HE IS NERVOUS, TRIED TO EXPLORE THE FACTOR FOR NERVOUSNESS, HOWEVER PATIENT STATED HE DOES NOT KNOW WHAT IS EXACTLY MAKING HIM NERVOUS. INSTRUCTED PATIENT TO TAKE DEEP BREATH, HE DENIED ANY CHEST PAIN, VITALS ARE WNL O2 SAT 97% AT ROOM AIR, BP 116/66, PULSE 67, RESP 20, TEMP 97.9, PAIN 4/10
--- NOTE | 2019-11-08 10:23 | NUR ---
ordered Ativan 0.5mg twice a day PRN, however patient stated he feels calm, continue to monitor
[2019-11-08] MEDS ORDERED: LORAZEPAM 0.5 MG TABLET PO PRN (10:30)
--- NOTE | 2019-11-08 12:30 | NUR ---
PATIENT STATED FEELS RELIEF FROM FEELING NERVOUS.
--- NOTE | 2019-11-08 14:13 | NUR ---
INTERDISCIPLINARY TEAM CONFERENCE
[2019-11-08] MEDS: ATORVASTATIN 40 MG TABLET PO SCH (17:29)
[2019-11-08 17:50] LABS: BASOPHILS # (AUTO) 0.1 K/uL (0.0-8.0); BASOPHILS % (AUTO) 0.8 % (0.0-2.0); EOSINOPHILS # (AUTO) 0.3 K/uL (0.0-0.7); EOSINOPHILS % (AUTO) 3.3 % (0.0-7.0); HEMOGLOBIN 9.9 g/dL (12.5-16.3); LYMPHOCYTES # (AUTO) 1.1 K/uL (20.0-40.0); MEAN CORPUSCULAR HEMOGLOBIN 28.1 uug (23.8-33.4); MEAN CORPUSCULAR HGB CONC 33 g/dL (32.5-36.3); MEAN CORPUSCULAR VOLUME 84.8 fL (73.0-96.2); MONOCYTES % (AUTO) 11.7 % (0.0-11.0); NEUTROPHILS # (AUTO) 6.2 K/uL (1.8-8.9); NEUTROPHILS % (AUTO) 71.2 % (38.5-71.5); PLATELET COUNT (AUTO) 413 K/uL (152-348); RED BLOOD CELL COUNT(AUTO) 3.54 MIL/uL (4.06-5.63); WHITE BLOOD COUNT (AUTO) 8.7 K/uL (3.6-10.2)
[2019-11-08 17:58] VITALS: BP 114/61
--- NOTE | 2019-11-08 18:01 | NUR ---
patient stated he feels very tired, noted with lethargy, usually ambulates with fww, with assist to the bathroom, heve not noted today ambulating to the bathroom with fww with assist, patient stayed in bed whole time, incision site is clean and dry, lungs clear upon auscultation, no cough, no congestion, bowel sounds active in 4 quadrants. MD Cox is aware, ordered labs, continue to monitor, will endorse to next shift accordingly. Addendum: 11/08/19 at 1850 by GM LU RN, RN patient stayed in chair for only few minutes during the day and went back to bed, stated he feels tired
[2019-11-08 18:02] LABS: CARBON DIOXIDE 30 mmol/L (21-32); CHLORIDE 104 mmol/L (98-107); CREATININE 1.6 mg/dL (0.6-1.3); GLUCOSE 121 mg/dL (74-106); MAGNESIUM 1.9 mg/dL (1.8-2.4); PHOSPHOROUS 3.6 mg/dL (2.5-4.9); POTASSIUM 4.1 mmol/L (3.5-5.1); UREA NITROGEN, BLOOD 23 mg/dL (7-18)
[2019-11-08 20:57] VITALS: BP 130/63
--- NOTE | 2019-11-08 21:46 | NUR ---
Received pt resting in bed and watching tv. AAO x4. No acute distress noted. C/o mild pain on the right hip. Scheduled Tylenol and other due meds given as ordered. Safety measures maintained. Bed alarm on. Call light and personal items within reach. Will continue to monitor.
[2019-11-09] MEDS: HYDROCODONE/APAP 5-325MG TABLET PO PRN ×3 (00:59→10:27)
[2019-11-09 05:00] VITALS: BP 132/73
[2019-11-09] MEDS: ACETAMINOPHEN 325 MG TABLET PO SCH ×3 (05:47→21:09)
--- NOTE | 2019-11-09 07:34 | NUR ---
Patient noted resting in bed with eyes closed, no facial cues of pain,no signs of distress at this time, call light in reach, bed locked and in lowest position, all needs met at this time
[2019-11-09 07:38] VITALS: BP 159/81
[2019-11-09] MEDS: ENOXAPARIN SODIUM 40 MG/0.4 ML DISP.SYRIN SQ SCH (08:40)
[2019-11-09] MEDS: FERROUS SULFATE 325 MG TABEC PO SCH ×2 (08:42→21:09)
[2019-11-09] MEDS: DOCUSATE SODIUM 100 MG CAPSULE PO SCH ×2 (08:42→21:09)
[2019-11-09] MEDS: CYANOCOBALAMIN 1,000 MCG TABLET PO SCH (08:43)
[2019-11-09] MEDS: buPROPion SR 100 MG TABLET.SA PO SCH (08:43)
[2019-11-09] MEDS: LOSARTAN POTASSIUM 50 MG TABLET PO SCH (08:43)
[2019-11-09] MEDS: MUPIROCIN 2% OINT 22 GM TUBE NS SCH (10:26)
[2019-11-09] MEDS: ENSURE WITH FIBER 237 ML LIQUID (CHOCOLATE) PO SCH ×3 (10:27→17:05)
[2019-11-09 15:16] VITALS: BP 166/83
[2019-11-09 15:24] LABS: *BILIRUBIN,URIN NEGATIVE (NEGATIVE); *BLOOD, URINE NEGATIVE (NEGATIVE); *CLARITY,URINE CLEAR (CLEAR); *COLOR,URINE YELLOW (YELLOW); *KETONES,URINE NEGATIVE (NEGATIVE); *UROBILINOGEN,URINE 0.2 E.U./dl (NORMAL); LEUKOCYTE ESTERASE ,URINE NEGATIVE (NEGATIVE); NITRITE, URINE NEGATIVE (NEGATIVE); UGLUCOSE NEGATIVE (NEGATIVE)
[2019-11-09 15:33] LABS: *CREATININE,URINE 56.4 mg/dL (30-125); *URINE TOTAL PROTEIN RANDOM 14.5 mg/dL (<150/24HR)
--- NOTE | 2019-11-09 16:00 | NUR ---
urine collected and sent to lab, unable to collect stool at this time, will given PRN medication for bowel movement
[2019-11-09] MEDS: BISACODYL 5 MG TABLET.DR PO PRN (17:04)
[2019-11-09] MEDS: ATORVASTATIN 40 MG TABLET PO SCH (17:04)
--- NOTE | 2019-11-09 19:35 | NUR ---
Received patient in bed. AAO x2-3. Not in acute distress or SOB. On room air. Able to make needs known. No Complain of pain. Physical assessment done. Fall prevention observed. Safety measures maintained. Bed in low and lock position, alarm on, side rails up x2 for safety. Call light and frequently used items within reach. Continue to monitor.
[2019-11-09 20:16] VITALS: BP 163/82
[2019-11-09] MEDS: AMLODIPINE 5 MG TABLET PO SCH (21:08)
--- NOTE | 2019-11-09 21:15 | NUR ---
Patient developed high BP, 2 times checked BP:163/82, 179/83, HR:65. No other symptoms presented. No PRN BP medication. Contacted [facility] on-call and received order of "Norvasc 5 mg daily starting now" from Dr. Kenny Diaz. Medication administered. Will recheck BP.
--- NOTE | 2019-11-09 22:20 | NUR ---
Rechecked the BP: 130/69, HR:63. Continue to monitor.
[2019-11-10] MEDS: HYDROCODONE/APAP 5-325MG TABLET PO PRN ×2 (04:01→08:36)
[2019-11-10 04:35] VITALS: BP 116/71
[2019-11-10] MEDS: ACETAMINOPHEN 325 MG TABLET PO SCH ×3 (06:09→21:14)
[2019-11-10 06:28] LABS: BASOPHILS # (AUTO) 0.1 K/uL (0.0-8.0); BASOPHILS % (AUTO) 1.1 % (0.0-2.0); EOSINOPHILS # (AUTO) 0.3 K/uL (0.0-0.7); HEMATOCRIT 33.1 % (36.7-47.1); HEMOGLOBIN 10.9 g/dL (12.5-16.3); LYMPHOCYTES # (AUTO) 1.3 K/uL (20.0-40.0); LYMPHOCYTES % (AUTO) 15.4 % (20.5-51.5); MEAN CORPUSCULAR HEMOGLOBIN 27.8 uug (23.8-33.4); MEAN CORPUSCULAR HGB CONC 33 g/dL (32.5-36.3); MEAN CORPUSCULAR VOLUME 84.3 fL (73.0-96.2); MONOCYTES % (AUTO) 12.5 % (0.0-11.0); NEUTROPHILS # (AUTO) 5.5 K/uL (1.8-8.9); PLATELET COUNT (AUTO) 392 K/uL (152-348); RED BLOOD CELL COUNT(AUTO) 3.93 MIL/uL (4.06-5.63); WHITE BLOOD COUNT (AUTO) 8.2 K/uL (3.6-10.2)
[2019-11-10 07:09] LABS: ALANINE AMINOTRANSFERASE 47 U/L (16-63); ALKALINE PHOSPHATASE 190 U/L (50-136); ASPARTATE AMINOTRANSFERASE 29 U/L (15-37); BILIRUBIN,TOTAL 0.4 mg/dL (0.2-1.0); CARBON DIOXIDE 26 mmol/L (21-32); CHLORIDE 104 mmol/L (98-107); CREATININE 1.4 mg/dL (0.6-1.3); FERRITIN 343 ng/mL (26-388); GLUCOSE 93 mg/dL (74-106); MAGNESIUM 1.7 mg/dL (1.8-2.4); PHOSPHOROUS 3.7 mg/dL (2.5-4.9); POTASSIUM 4.1 mmol/L (3.5-5.1); TOTAL PROTEIN, SERUM 6.3 g/dL (6.4-8.2); UREA NITROGEN, BLOOD 21 mg/dL (7-18)
[2019-11-10 07:25] LABS: IRON, SERUM 30 ug/dL (50-175)
[2019-11-10 07:36] LABS: CREATINE KINASE, TOTAL 40 U/L (39-308)
[2019-11-10 08:00] VITALS: BP 146/76
[2019-11-10] MEDS: ENOXAPARIN SODIUM 40 MG/0.4 ML DISP.SYRIN SQ SCH (08:27)
[2019-11-10] MEDS: CYANOCOBALAMIN 1,000 MCG TABLET PO SCH (08:33)
[2019-11-10] MEDS: DOCUSATE SODIUM 100 MG CAPSULE PO SCH ×2 (08:33→21:13)
[2019-11-10] MEDS: FERROUS SULFATE 325 MG TABEC PO SCH ×2 (08:33→21:13)
[2019-11-10] MEDS: buPROPion SR 100 MG TABLET.SA PO SCH (08:33)
[2019-11-10] MEDS: LOSARTAN POTASSIUM 50 MG TABLET PO SCH (08:34)
[2019-11-10] MEDS: AMLODIPINE 5 MG TABLET PO SCH (08:35)
[2019-11-10] MEDS: ENSURE WITH FIBER 237 ML LIQUID (CHOCOLATE) PO SCH ×3 (08:41→17:52)
[2019-11-10] MEDS ORDERED: MAGNESIUM OXIDE 400 MG TABLET PO ONE (13:45)
[2019-11-10 16:42] VITALS: BP 110/68
[2019-11-10] MEDS: ATORVASTATIN 40 MG TABLET PO SCH (17:51)
--- NOTE | 2019-11-10 20:46 | NUR ---
Patient mentioned that he did not have a good sleep last night and needs sleeping pill for tonight. Contacted [facility] on-call and received order of temazepam 7.[address] HS [address] Scott. Continue to monitor.
[2019-11-10 21:13] VITALS: BP 127/83
[2019-11-10] MEDS: TEMAZEPAM 7.5 MG CAPSULE PO PRN (23:11)
[2019-11-11 04:00] VITALS: BP 108/67
[2019-11-11] MEDS: ACETAMINOPHEN 325 MG TABLET PO SCH ×3 (05:08→21:00)
[2019-11-11] MEDS: HYDROCODONE/APAP 5-325MG TABLET PO PRN ×2 (06:42→12:41)
--- NOTE | 2019-11-11 07:30 | NUR ---
Patient noted resting in bed with eyes closed, no facial cues of pain, no signs of distress at this time, call light in reach, bed locked and in lowest position, all needs met at this time
[2019-11-11 08:00] VITALS: BP 121/73
[2019-11-11] MEDS: BISACODYL 5 MG TABLET.DR PO PRN (09:00)
[2019-11-11] MEDS: LOSARTAN POTASSIUM 50 MG TABLET PO SCH (09:00)
[2019-11-11] MEDS: DOCUSATE SODIUM 100 MG CAPSULE PO SCH ×2 (09:00→20:59)
[2019-11-11] MEDS: FERROUS SULFATE 325 MG TABEC PO SCH ×2 (09:00→20:59)
[2019-11-11] MEDS: CYANOCOBALAMIN 1,000 MCG TABLET PO SCH (09:00)
[2019-11-11] MEDS: AMLODIPINE 5 MG TABLET PO SCH (09:01)
[2019-11-11] MEDS: ENSURE WITH FIBER 237 ML LIQUID (CHOCOLATE) PO SCH ×3 (09:04→17:56)
[2019-11-11] MEDS: buPROPion SR 100 MG TABLET.SA PO SCH (09:04)
[2019-11-11] MEDS: ENOXAPARIN SODIUM 40 MG/0.4 ML DISP.SYRIN SQ SCH (09:22)
[2019-11-11] MEDS: LACTULOSE 20 G/30 ML LIQUID UDC PO SCH ×3 (12:32→23:00)
[2019-11-11 16:55] VITALS: BP 116/72
[2019-11-11] MEDS: ATORVASTATIN 40 MG TABLET PO SCH (17:52)
--- NOTE | 2019-11-11 19:09 | NUR ---
MD order for lactulose 20 mg q6 hr until bowel movement
[2019-11-11 20:35] VITALS: BP 99/60
[2019-11-11] MEDS: TEMAZEPAM 7.5 MG CAPSULE PO PRN (22:54)
[2019-11-12 04:50] VITALS: BP 114/70
[2019-11-12] MEDS: LACTULOSE 20 G/30 ML LIQUID UDC PO SCH ×2 (06:00→12:00)
[2019-11-12] MEDS: ACETAMINOPHEN 325 MG TABLET PO SCH ×3 (06:09→21:01)
--- NOTE | 2019-11-12 06:17 | NUR ---
Received patient in bed. AAO x2-3. Not in acute distress or SOB. On room air. Able to make needs known. Complain of pain of right hip, rated 3/10 in numeric scale. Physical assessment done. All due medication given and well tolerated. All needs attended promptly. Stool sample collected and sent to the lab. Fall prevention observed. Safety measures maintained. Bed in low and lock position, alarm on, side rails up x2 for safety. Call light and frequently used items within reach. Continue to monitor and will endorse to oncoming nurse accordingly.
[2019-11-12 07:44] VITALS: BP 122/77
[2019-11-12 09:10] LABS: A/G RATIO 0.8 (0.7-1.7); ALBUMIN 2.4 g/dL (2.9-4.4); ALPHA-1-GLOBULIN 0.3 g/dL (0.0-0.4); BETA GLOBULIN 0.9 g/dL (0.7-1.3); GAMMA GLOBULIN 0.8 g/dL (0.4-1.8); GLOBULIN, TOTAL 3.1 g/dL (2.2-3.9); M-SPIKE Not Observed g/dL (Not Observed)
[2019-11-12] MEDS: ENOXAPARIN SODIUM 40 MG/0.4 ML DISP.SYRIN SQ SCH (09:29)
[2019-11-12] MEDS: CYANOCOBALAMIN 1,000 MCG TABLET PO SCH (09:30)
[2019-11-12] MEDS: AMLODIPINE 5 MG TABLET PO SCH (09:30)
[2019-11-12] MEDS: FERROUS SULFATE 325 MG TABEC PO SCH ×2 (09:31→20:51)
[2019-11-12] MEDS: buPROPion SR 100 MG TABLET.SA PO SCH (09:31)
[2019-11-12] MEDS: DOCUSATE SODIUM 100 MG CAPSULE PO SCH ×2 (09:31→20:51)
[2019-11-12] MEDS: LOSARTAN POTASSIUM 50 MG TABLET PO SCH (09:31)
[2019-11-12] MEDS: ENSURE WITH FIBER 237 ML LIQUID (CHOCOLATE) PO SCH ×3 (09:38→17:30)
[2019-11-12 12:35] LABS: CARBON DIOXIDE 27 mmol/L (21-32); CHLORIDE 104 mmol/L (98-107); CREATININE 1.5 mg/dL (0.6-1.3); GLUCOSE 103 mg/dL (74-106); POTASSIUM 4.5 mmol/L (3.5-5.1); UREA NITROGEN, BLOOD 23 mg/dL (7-18)
--- NOTE | 2019-11-12 13:39 | NUR ---
Patient refused to take lactulose since he already had a bowel movement last night.
[2019-11-12 15:49] VITALS: BP 94/63
[2019-11-12] MEDS: ATORVASTATIN 40 MG TABLET PO SCH (17:30)
--- NOTE | 2019-11-12 19:10 | NUR ---
Patient remains alert, oriented x 3, not in any form of distress, on room air. He denies any pain or discomfort at this time. Patient participated with PT and OT and tolerated well. Needs attended to promptly. Due medications administered and tolerated well. Patient seen by Dr. Wang with no new order. Also patient seen by Mignon Tafoya NP and ordered to discontinue lactulose. Surgical incision site noted with steri-strips, well coaptated, no signs of infection. Call light and frequently used items placed within reach. Endorsed accordingly to healthcare administrative assistant nurse.
[2019-11-12 20:00] VITALS: BP 128/41
--- NOTE | 2019-11-12 21:59 | NUR ---
resting in bed upon initial rounds. aaox 3-4 needs attended. VSS kept comfortable. compliant with meds. tolerated po meds well.Denies any pain nor any discomfort. voiding freely. fall precautions maintained.right hip incision clean and dry with steristrips SATIN FINISHER.
[2019-11-13] MEDS: HYDROCODONE/APAP 5-325MG TABLET PO PRN ×2 (00:55→09:30)
[2019-11-13 05:00] VITALS: BP 123/70
[2019-11-13] MEDS: ACETAMINOPHEN 325 MG TABLET PO SCH ×3 (06:12→21:02)
--- NOTE | 2019-11-13 06:44 | NUR ---
End of the shift notes:siderails up for safety slept well most of the shift. aaox4 needs attended, no acute distress noted. will monitor patient.
[2019-11-13 08:00] VITALS: BP 130/70
[2019-11-13] MEDS: LOSARTAN POTASSIUM 50 MG TABLET PO SCH (09:29)
[2019-11-13] MEDS: AMLODIPINE 5 MG TABLET PO SCH (09:29)
[2019-11-13] MEDS: DOCUSATE SODIUM 100 MG CAPSULE PO SCH ×2 (09:29→20:55)
[2019-11-13] MEDS: CYANOCOBALAMIN 1,000 MCG TABLET PO SCH (09:29)
[2019-11-13] MEDS: buPROPion SR 100 MG TABLET.SA PO SCH (09:29)
[2019-11-13] MEDS: FERROUS SULFATE 325 MG TABEC PO SCH ×2 (09:29→20:55)
[2019-11-13] MEDS: ENOXAPARIN SODIUM 40 MG/0.4 ML DISP.SYRIN SQ SCH (09:35)
[2019-11-13] MEDS: ENSURE WITH FIBER 237 ML LIQUID (CHOCOLATE) PO SCH ×3 (09:35→17:12)
--- NOTE | 2019-11-13 10:00 | NUR ---
Received pt. in bed, A/Ox3-4 able to make his needs known. In no acute distress, afebrile, denies SOB or CP. All due AM medication given as ordered. No new skin condition noted, skin care rendered, RT hip surgical incision with steri strips C/D/I and AUGUSTINE. No s/sx of bleeding, currently on Lovenox SQ. [place] given for c/o pain prior to PT tx. Kept pt. clean and dry. All pt. needs attended and met promptly. Safety measures in place. Call light and all frequently used items within pt. reach.
[2019-11-13 12:06] LABS: CALCITRIOL VIT D,1,25 DIHYDROX 23.1 pg/mL (19.9-79.3)
[2019-11-13] MEDS: ATORVASTATIN 40 MG TABLET PO SCH (17:12)
[2019-11-13 17:22] VITALS: BP 99/50
--- NOTE | 2019-11-13 18:27 | NUR ---
EOS: No significant acute changes during this shift. Pt. received all due medications. Pt. participated with PT/OT, ambulated with FWW + 1 person assist. All pt. needs attended and met promptly. 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 Safety measures in place. Call light and all frequently used items within pt. reach. Will endorse to oncoming shift.
[2019-11-13 20:06] VITALS: BP 117/64
[2019-11-13] MEDS: TEMAZEPAM 7.5 MG CAPSULE PO PRN (22:04)
--- NOTE | 2019-11-14 04:00 | NUR ---
Received patient in bed. AAO x3. Not in acute distress or SOB. On room air. Able to make needs known. No Complain of pain. Physical assessment done. All due medication given and well tolerated. All needs attended promptly. Fall prevention observed. Safety measures maintained. Bed in low and lock position, alarm on, side rails up x2 for safety. Call light and frequently used items within reach. Continue to monitor and will endorse to oncoming nurse accordingly.
[2019-11-14 04:53] VITALS: BP 123/69
[2019-11-14] MEDS: ACETAMINOPHEN 325 MG TABLET PO SCH ×3 (05:51→21:59)
[2019-11-14 08:17] VITALS: BP 126/75
[2019-11-14] MEDS: FERROUS SULFATE 325 MG TABEC PO SCH ×2 (09:05→20:43)
[2019-11-14] MEDS: AMLODIPINE 5 MG TABLET PO SCH (09:06)
[2019-11-14] MEDS: buPROPion SR 100 MG TABLET.SA PO SCH (09:07)
[2019-11-14] MEDS: CYANOCOBALAMIN 1,000 MCG TABLET PO SCH (09:07)
[2019-11-14] MEDS: LOSARTAN POTASSIUM 50 MG TABLET PO SCH (09:07)
[2019-11-14] MEDS: DOCUSATE SODIUM 100 MG CAPSULE PO SCH ×2 (09:07→20:43)
[2019-11-14] MEDS: ENSURE WITH FIBER 237 ML LIQUID (CHOCOLATE) PO SCH ×3 (09:08→16:10)
[2019-11-14] MEDS: ENOXAPARIN SODIUM 40 MG/0.4 ML DISP.SYRIN SQ SCH (09:12)
[2019-11-14 12:17] LABS: BASOPHILS # (AUTO) 0.1 K/uL (0.0-8.0); BASOPHILS % (AUTO) 1.2 % (0.0-2.0); EOSINOPHILS # (AUTO) 0.3 K/uL (0.0-0.7); EOSINOPHILS % (AUTO) 3.9 % (0.0-7.0); HEMATOCRIT 33.2 % (36.7-47.1); LYMPHOCYTES # (AUTO) 0.8 K/uL (20.0-40.0); LYMPHOCYTES % (AUTO) 10.8 % (20.5-51.5); MEAN CORPUSCULAR HEMOGLOBIN 28.1 uug (23.8-33.4); MEAN CORPUSCULAR HGB CONC 33 g/dL (32.5-36.3); MEAN CORPUSCULAR VOLUME 84.9 fL (73.0-96.2); MONOCYTES # (AUTO) 0.8 K/uL (2.0-10.0); MONOCYTES % (AUTO) 10.6 % (0.0-11.0); NEUTROPHILS # (AUTO) 5.3 K/uL (1.8-8.9); NEUTROPHILS % (AUTO) 73.5 % (38.5-71.5); PLATELET COUNT (AUTO) 270 K/uL (152-348); RED BLOOD CELL COUNT(AUTO) 3.91 MIL/uL (4.06-5.63); WHITE BLOOD COUNT (AUTO) 7.2 K/uL (3.6-10.2)
[2019-11-14 12:31] LABS: CARBON DIOXIDE 29 mmol/L (21-32); CHLORIDE 103 mmol/L (98-107); CREATININE 1.5 mg/dL (0.6-1.3); GLUCOSE 94 mg/dL (74-106); POTASSIUM 4.3 mmol/L (3.5-5.1); UREA NITROGEN, BLOOD 30 mg/dL (7-18)
[2019-11-14 16:00] VITALS: BP 100/53
--- NOTE | 2019-11-14 16:46 | NUR ---
BUN TRENDING SLIGHTLY HIGH, ENCOURAGED -PATIENT TO DRINK MORE WATER, VERBALIZED UNDERSTANDING OF BENEFIT OF DRINKING OF WATER, PATIENT ATE TWO JELLOES, AND DRANK WATER, CONTINUE TO MONITOR
[2019-11-14] MEDS: ATORVASTATIN 40 MG TABLET PO SCH (17:20)
--- NOTE | 2019-11-14 19:45 | NUR ---
PATIENT ALERT ORIENTED, NO SOB NO CHEST PAIN. PATIENT HAS NO COMPLAIN OF PAIN AT THIS TIME. PATIENT R HIP WITH STERI STRIP, REMIND PATIENT TO SHIFT HIS BUTTOCKS WEIGHT TO PREVENT SORES, CALL LIGHT WITHIN REACH.
[2019-11-14 20:51] VITALS: BP 109/52
[2019-11-14] MEDS: TEMAZEPAM 7.5 MG CAPSULE PO PRN (21:58)
[2019-11-15 05:37] VITALS: BP 124/71
[2019-11-15] MEDS: ACETAMINOPHEN 325 MG TABLET PO SCH ×3 (06:02→21:01)
--- NOTE | 2019-11-15 06:26 | NUR ---
PATIENT ALERT ORIENTED, NO COMPLAINS OF PAIN. PATIENT SLEPT INTERMITTENTLY, GIVEN WARM BLANKET DUE COMPLAIN OF BEING COLD. PATIENT USES URINAL FOR BLADDER ELIMINATION, CONT TO MONITOR.
[2019-11-15] MEDS: ENOXAPARIN SODIUM 40 MG/0.4 ML DISP.SYRIN SQ SCH (08:49)
[2019-11-15] MEDS: CYANOCOBALAMIN 1,000 MCG TABLET PO SCH (08:49)
[2019-11-15] MEDS: DOCUSATE SODIUM 100 MG CAPSULE PO SCH ×2 (08:50→20:31)
[2019-11-15] MEDS: FERROUS SULFATE 325 MG TABEC PO SCH ×2 (08:50→20:31)
[2019-11-15] MEDS: LOSARTAN POTASSIUM 50 MG TABLET PO SCH (08:57)
[2019-11-15] MEDS: AMLODIPINE 5 MG TABLET PO SCH (08:57)
[2019-11-15] MEDS: buPROPion SR 100 MG TABLET.SA PO SCH (08:58)
[2019-11-15] MEDS: ENSURE WITH FIBER 237 ML LIQUID (CHOCOLATE) PO SCH ×3 (08:59→17:00)
[2019-11-15 16:09] VITALS: BP 136/77
--- NOTE | 2019-11-15 16:09 | NUR ---
INTERDISCIPLINARY TEAM CONFERENCE
[2019-11-15] MEDS: ATORVASTATIN 40 MG TABLET PO SCH (17:12)
--- NOTE | 2019-11-15 18:13 | NUR ---
PATIENT IS ALERT, AWAKE, NO DISTRESS NOTED, DISCHARGING TOMORROW JANE HANKINS.,
[2019-11-15 20:35] VITALS: BP 126/74
--- NOTE | 2019-11-15 21:08 | NUR ---
alert and oriented x4 watching TV upon initial rounds. VSS. No acute distress noted. Compliant with care. Right hip incision with steristrips AUGUSTINE. Denies any pain at this time. Possible discharge tomorrow to [facility]. Took meds without difficulty.
[2019-11-16 04:59] VITALS: BP 131/78
[2019-11-16] MEDS: ACETAMINOPHEN 325 MG TABLET PO SCH ×2 (06:25→15:36)
--- NOTE | 2019-11-16 06:53 | NUR ---
End of shift note: Quiet night. slept well. no acute distress noted. possible discharge today. needs attended. no complaints presented shift.
--- NOTE | 2019-11-16 07:39 | NUR ---
Patient noted resting in bed with eyes closed, no complaints of pain at this time, no signs of distress noted, call light in reach, bed locked and in lowest position, all needs met at this time
[2019-11-16 08:00] VITALS: BP 121/72
[2019-11-16] MEDS: buPROPion SR 100 MG TABLET.SA PO SCH (09:21)
[2019-11-16] MEDS: DOCUSATE SODIUM 100 MG CAPSULE PO SCH (09:21)
[2019-11-16] MEDS: CYANOCOBALAMIN 1,000 MCG TABLET PO SCH (09:21)
[2019-11-16] MEDS: FERROUS SULFATE 325 MG TABEC PO SCH (09:21)
[2019-11-16] MEDS: LOSARTAN POTASSIUM 50 MG TABLET PO SCH (09:22)
[2019-11-16] MEDS: AMLODIPINE 5 MG TABLET PO SCH (09:22)
[2019-11-16] MEDS: ENSURE WITH FIBER 237 ML LIQUID (CHOCOLATE) PO SCH ×3 (09:23→17:30)
[2019-11-16] MEDS: HYDROCODONE/APAP 5-325MG TABLET PO PRN (09:23)
[2019-11-16] MEDS: ENOXAPARIN SODIUM 40 MG/0.4 ML DISP.SYRIN SQ SCH (09:30)
[2019-11-16 16:00] VITALS: BP 115/59
[2019-11-16] MEDS: ATORVASTATIN 40 MG TABLET PO SCH (17:39)
--- NOTE | 2019-11-16 18:23 | NUR ---
Patient discharged at this time via [place] [facility], no complaints of pain, no signs of distress noted, vitals: 115/59, 98.0 oral temperature, 68 pulse, 18 respiration, 96% oxygen, report given to Shabbir KOHLI of [facility], picture of right hip taken and placed in chart, belongings accounted for and belongings sheet signed, discharge instructions given, exit care provided, md sterling and Maurilio made aware of patients discharge
== END 2019-11-16 18:30 | disposition home or self-care (01) | DRG 559 ==
PROVIDERS: ADMIT Physical Medicine & Rehabilitation Pain Medicine; ATTEND Physical Medicine & Rehabilitation Pain Medicine
DX: S72.001D Fracture of unspecified part of neck of right femur, subsequent encounter for closed fracture with routine healing (principal); N17.0 Acute kidney failure with tubular necrosis; J18.9 Pneumonia, unspecified organism; J96.01 Acute respiratory failure with hypoxia; G95.89 Other specified diseases of spinal cord; J44.0 Chronic obstructive pulmonary disease with (acute) lower respiratory infection; E78.00 Pure hypercholesterolemia, unspecified; E78.5 Hyperlipidemia, unspecified; G89.29 Other chronic pain; I12.9 Hypertensive chronic kidney disease with stage 1 through stage 4 chronic kidney disease, or unspecified chronic kidney disease; W18.30XD Fall on same level, unspecified, subsequent encounter; N18.9 Chronic kidney disease, unspecified; I27.20 Pulmonary hypertension, unspecified; M16.11 Unilateral primary osteoarthritis, right hip; M48.02 Spinal stenosis, cervical region; Z96.641 Presence of right artificial hip joint; Z86.73 Personal history of transient ischemic attack (TIA), and cerebral infarction without residual deficits; Z87.891 Personal history of nicotine dependence; E53.8 Deficiency of other specified B group vitamins; D50.9 Iron deficiency anemia, unspecified; F03.90 Unspecified dementia, unspecified severity, without behavioral disturbance, psychotic disturbance, mood disturbance, and anxiety; M85.80 Other specified disorders of bone density and structure, unspecified site; R91.1 Solitary pulmonary nodule; Z22.322 Carrier or suspected carrier of Methicillin resistant Staphylococcus aureus
CPT/HCPCS: 36415; 70030-TC; 71045; 73501; 82652; 83550; 83735; 83970; 84100; 84155; 84156; 84165; 84300; 85025; J1650